=== PATIENT | female | born 1970 | race Caucasian/White ===

== ENCOUNTER 2018-10-25 22:47 | Emergency (ER) | payer OTHER, SELFPAY ==
[2018-10-25 22:48] VITALS: BP 141/79; PULSE 66; RESP 16; TEMP 36.9; O2SAT 100; BMI 31.4
[2018-10-25 23:10] LABS: Absolute Lymphocyte Count 1.51 X10^3/ul (0.83-4.51); Absolute Neutrophil Count 8.7 X10^3/uL (2.0-7.7); Basophil# 0.02 X10^3/uL; Basophil% 0.2 % (0-1); Eosinophil# 0.24 X10^3/uL; Eosinophils% 2.2 % (0-5); Hematocrit 40.1 % (37-47); Hemoglobin 13.4 g/dl (12.0-15.0); Lymphocyte # 1.51 X10^3/ul (4.0); Lymphocyte % 13.7 % (19-41); Mean Corp Hgb Conc 33.4 g/gl (32-36); Mean Corpuscular Hgb 31.1 pg (27.0-32.0); Mean Platelet Vol. 10.2 fl (6.2-12.0); Monocyte# 0.54 X10^3/uL; Monocyte% 4.9 % (0-10); Neutrophil # 8.73 X10^3/uL (2.7-7.7); Neutrophil % 78.9 % (47-70); Platelet Count 236 K/mm3 (150-450); RBC Distribution Width SD 44.4 fl (35.1-43.9); Red Blood Count 4.31 M/mm3 (4.2-5.4); White Blood Count 11.1 K/mm3 (4.4-11.0)
[2018-10-25 23:11] LABS: POSITIVE COUNT NO; POSITIVE DIFFERENTIAL NO; POSITIVE MORPHOLOGY NO
[2018-10-25 23:18] LABS: Bacteria 0 SEEN /hpf (None Seen); Mucous, Urine 0 SEEN /hpf (<or=2+)
[2018-10-25 23:19] LABS: Anion Gap 9 (5-15); BUN 17 mg/dL (7-18); BUN/Creat Ratio 20.9 RATIO (10-20); Calcium,Total 8.9 mg/dL (8.5-10.1); Chloride 104 mmol/L (98-107); Creatinine, Serum 0.81 mg/dL (0.55-1.02); EST Glomerular Filtration Rate 80 mL/min (>60); Est Glom Filt Rate - Afr Amer 97 mL/min (>60); Estimated Creatinine Clearance 71.03 ml/min; Glucose 114 mg/dL (74-106); Potassium 4.1 mmol/L (3.5-5.1); Sodium Level 137 mmol/L (136-145)
--- NOTE | 2018-10-25 23:25 | CT_ITS ---
HISTORY: PT STATED RT SIDE PAIN X SEVERAL HOURS TODAY TECHNIQUE: Helically acquired images were obtained of the abdomen and pelvis without oral or IV contrast as per renal stone protocol. A radiation dose optimization technique was used for this scan. IV Contrast dosage and agent: None. Oral contrast: None. COMPARISON: None FINDINGS: Both kidneys are normal in position. The left kidney shows several 2 mm calyceal stones at the upper and lower pole regions. No additional calculi are seen. No hydronephrosis or hydroureter. Adrenal glands are not enlarged. Lower thorax: No pleural effusion. Limited non-infusion exam. Allowing for this, the liver, spleen, pancreas, gallbladder, and biliary system showed no CT abnormality. Abdominal aorta is atherosclerotic and is normal in caliber. No ascites or retroperitoneal lymphadenopathy. GI tract: Constipation pattern. Diverticulosis coli. No pericecal or pericolonic inflammatory changes. Appendix: The appendix is mildly dilated measuring 10 mm in diameter and shows a solitary 4 mm stone. No associated kenia-appendiceal inflammatory changes are seen. Pelvis: The uterus is not visualized. No free fluid or lymphadenopathy. Urinary bladder is poorly distended. No urinary bladder stones are seen. Bones: No acute osseous abnormality. CT/Abdomen/Pelvis without Cont IMPRESSION: 1. Left renal small nonobstructing stones. Negative for hydronephrosis. 2. Mildly dilated appendix with small appendicolith but no CT findings of acute appendicitis. 3. Constipation pattern. Diverticulosis coli. Individualized dose optimization techniques were used for this CT. at 0020 Reported and signed by: Nathan Sow MD N.B. : The above information has been verbally conveyed by Nathan Sow to Humberto Will MD, on 10/26/2018 00:29:38 (ET). Electronically Signed: Nathan Sow, at 0:19 EST Tel , Service support ,
[2018-10-25 23:33] LABS: Color, Urine Yellow (Yellow); Glucose, Dipstick Normal (Normal); Ketone-Dipstick 5 mg/dl (Negative); Leukocyte Esterase-Dipstick 25 /ul (Negative); Nitrite-Dipstick Negative (Negative); Occult Blood-Urine 50 /ul (Negative); Protein-Dipstick 15 mg/dl (Negative); Specific Gravity, Urine 1.025 (1.002-1.030); Urine Bilirubin Dipstick Negative (Negative); Urine Clarity Clear (Clear); Urine Urobilinogen Normal (Normal)
[2018-10-25] MEDS: Ondansetron 4 MG/2 ML Vial IV (23:33)
[2018-10-25] MEDS: Morphine 4 MG/ML Syringe IV (23:33)
[2018-10-25 23:47] LABS: AST(SGOT) 16 U/L (15-37); Alanine Aminotransfer ALT/SGPT 32 U/L (13-56); Albumin, Serum 4.2 g/dL (3.2-5.0); Alkaline Phosphatase 81 U/L (45-117); Bilirubin, Direct 0.15 mg/dL (0.00-0.30); Globulin 3.6 g/dL (2.2-4.2); Protein, Total 7.8 g/dL (6.4-8.2)
[2018-10-25 23:58] LABS: Pregnancy, Serum, hCG Quali. NEGATIVE Negative (0-9 Nonpreg)
[2018-10-26 00:01] LABS: Amorphous Sediment 1+ URATE; Red Blood Cells-Urine 0-5 SEEN /hpf (0-5); Squamous Epithelial Cells - UA 0-5 SEEN /hpf (5-10); White Blood Cells 0-5 SEEN /hpf (0-5)
[2018-10-26 00:05] LABS: Lipase 90 U/L (73-393)
[2018-10-26] MEDS: Ketorolac 30 MG/ML Syringe IV (00:05)
--- NOTE | 2018-10-26 00:07 | ED.DCSUM_ITS ---
- ER Visit Summary Date of Service: 10/26/18 Chief Complaint: Abdominal pain History of Present Illness: The patient is a 48 F presents to the emergency department abdominal pain. Patient symptoms began yesterday. States he had a mild ache in her right flank area. Today, the pain started again at about 3 PM. He states his been mostly constant but does come in waves of severity. She is been nauseated with one episode of vomiting. She states it feels like it is more in her abdomen. She has a history of prior kidney stone. She has required lithotripsy in the past. She denies any fevers or chills. She denies any dysuria. She denies any recent change in medications. Physical Examination: Vital signs reviewed General: Well-nourished, well-developed Head: Normocephalic, atraumatic Eyes: Pupils equal and reactive, extraocular muscles intact Neck, supple, no lymphadenopathy Heart: Regular rate and rhythm Respiratory: No distress, clear bilaterally Abdomen: Soft, nontender, nondistended, no peritoneal signs Back: Nontender Extremities: Nontender, no edema, no cords Skin: Normal color no rash Neuro: Alert and oriented, no focal or lateralizing deficits Test Results: [] Emergency Department Course and Treatment: The patient presents with abdominal pain mostly in her right flank area. The pain did wax and wane and she did have nausea and vomiting. Her symptoms did seem most consistent with kidney stone. IV was established. Patient was given fluids, analgesics, and antiemetics. She did have improvement, but then return of pain. Her medications were redosed and she was much more comfortable. Screening labs do show mild leukocytosis of 11.1. There is some trace blood in the urinalysis. CT demonstrates some small stones in the kidney, but nothing within the tract. There is some dilation of the appendix, but no evidence of acute appendicitis. Actually reviewed this with the radiologist. I went back and reexamined the patient. She has absolutely no tenderness in the right lower quadrant. She has no rebound or guarding. 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 My suspicion is that the patient likely had a small stone that was not visualized on CT that is causing her pain. She is now pain-free on reevaluation. There is no evidence of hydronephrosis. She has no evidence of infection. I do feel that she is safe for outpatient therapy. I did senior counsel her that if her symptoms worsen or return in any way she should return to the emergency department. She is comfortable with this plan of care. Treatment Plan: [] Disposition: [] Impression: 1. Right flank pain suspect urolithiasis This note was generated with [employer] dictation software. It may contain incorrect words, spelling, and punctuation that were not noted in review of the chart prior to signing ED Disposition - Plan for ED Patient: Chief Complaint: Abd Pain Instructions: ED Flank Pain Uncertain Cause Prescriptions: Hydrocodone Bitart/Apap 5-325 [[place] 5MG-325MG] 1 tab PO Q6H PRN PRN 3 Days #8 tab PRN Reason: Pain Ondansetron [Zofran Odt] 4 mg PO Q8H PRN PRN #10 tab PRN Reason: Nausea Referrals: Jose Manuel Zamorano MD [Primary Care Provider] -
[2018-10-26] MEDS: Morphine 4 MG/ML Syringe IV (01:00)
[2018-10-26 01:02] VITALS: BP 126/82; PULSE 70; RESP 18; TEMP 37.1; O2SAT 97
--- NOTE | 2018-10-26 01:22 | EKG12_ITS ---
Test Reason : Blood Pressure : / mmHG Vent. Rate : 071 BPM Atrial Rate : 071 BPM P-R Int : 154 ms QRS Dur : 076 ms QT Int : 390 ms P-R-T Axes : 008 007 010 degrees QTc Int : 423 ms Normal sinus rhythm Low voltage QRS Borderline ECG Confirmed by PAN HARRIS, SABRINA ([id number]), news video editor VITA GOLD ([id number]) on 10/27/2018 3:28:10 PM Referred By: NILSON Confirmed By:SABRINA PERLA MD
[2018-10-26 01:25] VITALS: BP 117/78; PULSE 72; RESP 16; O2SAT 95
[2018-10-26] MEDS: HYDROcodone Bitartrate/Apap 5/325 Tablet PO (01:33)
[2018-10-26] MEDS: Ondansetron ODT 4 MG Tablet PO (01:34)
== END 2018-10-26 01:36 | disposition home or self-care (01) ==
PROVIDERS: Emergency Provider Emergency Medicine; Family Provider Family Medicine; PCP Family Medicine
DX: R10.9 Unspecified abdominal pain (principal); R11.2 Nausea with vomiting, unspecified; Z87.442 Personal history of urinary calculi
CPT/HCPCS: 74176; 80048; 80076; 81001; 83690; 84703; 85025; 93005; 96374; 96375; 96376; 99284; A4216; J2405

== ENCOUNTER → 2019-01-28 15:10 | Outpatient (CLI) | payer OTHER, SELFPAY ==
[2019-01-28 11:02] VITALS: BMI 31.4
== END ==
PROVIDERS: Family Provider Family Medicine; PCP Family Medicine; Referring Provider Physician Assistant Surgical; Visit Provider Physician Assistant Surgical
DX: J02.9 Acute pharyngitis, unspecified (principal)
CPT/HCPCS: 87081

== ENCOUNTER → 2019-03-31 08:26 | Outpatient (CLI) | payer OTHER, SELFPAY ==
[2019-03-31 08:19] VITALS: BMI 31.4
--- NOTE | 2019-03-31 08:28 | RAD_ITS ---
HISTORY:LEFT KNEE PAIN X 5 WEEKS, GETTING WORSE LEFT KNEE PAIN X 5 WEEKS, GETTING WORSE COMPARISON: None FINDINGS: # of images incl. paperwork: 4 XR Knee Complete 4 Views or More: Left BONE AND JOINTS: No acute fracture or subluxation. SOFT TISSUES: Unremarkable. No radiopaque foreign body. RAD/Knee 4 or More Views IMPRESSION: No acute pathology If symptoms persist consider mri for further evaluation if clinically indicated. at 1942 Reported and signed by: Marylu Jones DO Electronically Signed: Marylu Jones DO at 19:40 EDT Tel , Service support ,
== END ==
PROVIDERS: Family Provider Family Medicine; PCP Family Medicine; Referring Provider Physician Assistant; Visit Provider Physician Assistant
DX: M25.562 Pain in left knee (principal)
CPT/HCPCS: 73564

== ENCOUNTER 2019-04-01 14:05 | Outpatient (RCR) | payer OTHER, SELFPAY ==
[2019-03-31 08:19] VITALS: BMI 31.4
== END 2019-04-01 19:00 | disposition home or self-care (01) ==
LOC: PT 14:05
PROVIDERS: Family Provider Family Medicine; PCP Family Medicine; Referring Provider Physician Assistant; Visit Provider Physician Assistant
DX: M76.32 Iliotibial band syndrome, left leg (principal); M22.2X2 Patellofemoral disorders, left knee

== ENCOUNTER → 2019-04-15 09:20 | Outpatient (CLI) | payer OTHER, SELFPAY ==
[2019-04-15 09:17] VITALS: BMI 31.4
--- NOTE | 2019-04-15 09:23 | RAD_ITS ---
STUDY: X-RAY - LEFT KNEE REASON FOR EXAM: Female, 49 years old. [place] a pop with pain. TECHNIQUE: 4 view(s) of the knee. COMPARISON: None. FINDINGS: Normal visualized distal femur. Normal visualized proximal tibia and fibula. Normal proximal tibiofibular articulation. Normal medial femorotibial compartment. Normal lateral femorotibial compartment. Normal patellofemoral articulation. The soft tissue structures are unremarkable. RAD/Knee 4 or More Views IMPRESSION: Normal x-ray examination of the knee. Electronically Signed: Seun Roche MD at 17:15 EDT , Service support ,
== END ==
PROVIDERS: Family Provider Family Medicine; PCP Family Medicine; Referring Provider Orthopaedic Surgery; Visit Provider Orthopaedic Surgery
DX: S89.92XA Unspecified injury of left lower leg, initial encounter (principal); X58.XXXA Exposure to other specified factors, initial encounter; Y93.9 Activity, unspecified; Y92.9 Unspecified place or not applicable; Y99.9 Unspecified external cause status
CPT/HCPCS: 73564

== ENCOUNTER → 2019-04-16 07:47 | Outpatient (CLI) | payer OTHER, SELFPAY ==
[2019-04-15 09:17] VITALS: BMI 31.4
[2019-04-16 08:32] LABS: Absolute Lymphocyte Count 1.57 X10^3/ul (0.83-4.51); Absolute Neutrophil Count 4.4 X10^3/uL (2.0-7.7); Basophil# 0.02 X10^3/uL; Basophil% 0.3 % (0-1); Eosinophil# 0.29 X10^3/uL; Eosinophils% 4.4 % (0-5); Hematocrit 37.7 % (37-47); Hemoglobin 12.6 g/dl (12.0-15.0); Lymphocyte # 1.57 X10^3/ul (4.0); Mean Corp Hgb Conc 33.4 g/gl (32-36); Mean Corpuscular Hgb 31.4 pg (27.0-32.0); Mean Platelet Vol. 9.7 fl (6.2-12.0); Monocyte# 0.22 X10^3/uL; Monocyte% 3.4 % (0-10); Neutrophil # 4.44 X10^3/uL (2.7-7.7); Neutrophil % 67.7 % (47-70); POSITIVE COUNT NO; POSITIVE DIFFERENTIAL NO; POSITIVE MORPHOLOGY NO; Platelet Count 254 K/mm3 (150-450); RBC Distribution Width CV 13.8 % (11.6-14.6); RBC Distribution Width SD 47.6 fl (35.1-43.9); Red Blood Count 4.01 M/mm3 (4.2-5.4); White Blood Count 6.6 K/mm3 (4.4-11.0)
[2019-04-16 08:53] LABS: ALB/GLOB Ratio 1.2 RATIO (0.9-2.4); AST(SGOT) 15 U/L (15-37); Alanine Aminotransfer ALT/SGPT 22 U/L (13-56); Albumin, Serum 3.9 g/dL (3.2-5.0); Alkaline Phosphatase 72 U/L (45-117); Anion Gap 5 (5-15); BUN 14 mg/dL (7-18); BUN/Creat Ratio 19.6 RATIO (10-20); Calcium,Total 8.9 mg/dL (8.5-10.1); Chloride 108 mmol/L (98-107); Cholesterol 144 mg/dL (200); Creatinine, Serum 0.71 mg/dL (0.55-1.02); EST Glomerular Filtration Rate 93 mL/min (>60); Est Glom Filt Rate - Afr Amer 112 mL/min (>60); Globulin 3.2 g/dL (2.2-4.2); Glucose 86 mg/dL (74-106); High Density Lipoprotein 60 mg/dL; Potassium 3.8 mmol/L (3.5-5.1); Protein, Total 7.1 g/dL (6.4-8.2); Sodium Level 140 mmol/L (136-145); Triglycerides 70 mg/dL; Very Low Density Lipoprotein 14 mg/dL (5-40)
== END ==
PROVIDERS: Family Provider Family Medicine; PCP Family Medicine; Referring Provider Family Medicine; Visit Provider Family Medicine
DX: Z00.00 Encounter for general adult medical examination without abnormal findings (principal)
CPT/HCPCS: 36415; 80053; 80061; 85025

== ENCOUNTER → 2019-04-22 12:30 | Outpatient (CLI) | payer OTHER, SELFPAY ==
[2019-04-15 09:17] VITALS: BMI 31.4
[2019-04-20 15:08] VITALS: BMI 31.4
--- NOTE | 2019-04-22 12:33 | MRI_ITS ---
STUDY: MRI LEFT KNEE REASON FOR EXAM: Female, 49 years old. Left knee pain after injury with popping sensation on April 11, 2019. TECHNIQUE: Standardized fat and water weighted pulse sequences were obtained in all 3 orthogonal planes. COMPARISON: X-rays of the left knee dated April 15, 2019. FINDINGS: Normal medial meniscus. Moderate thinning of the articular cartilage of the medial femorotibial compartment with subchondral cyst formation in the inner aspect of the medial tibial plateau (coronal series 6 images 9-17). Mild MCL sprain (coronal series 6 image 14). Normal distal semimembranosus, gracilis and semitendinosus tendons. Normal lateral meniscus. Mild thinning of the articular cartilage of the lateral femorotibial compartment (coronal series 6 images 10-16). Normal lateral femoral condyle and tibial plateau. Normal proximal tibiofibular articulation. Normal lateral collateral (fibular) ligament. Normal popliteus tendon. Normal biceps femoris tendon. Normal anterior cruciate ligament (ACL). Normal posterior cruciate ligament (PCL). 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 Normal medial and lateral patellar retinaculum. Normal quadriceps tendon. Normal patellar tendon. Normal Hoffa's fat pad. Joint effusion (axial series 2 image 11). Prepatellar subcutaneous soft tissue edema (sagittal series 4 image 13). The otherwise visualized osseous structures are unremarkable. MRI/Lower Ext Joint Only (Routine) IMPRESSION: Moderate thinning of the articular cartilage of the medial femorotibial compartment with subchondral cyst formation in the inner aspect of the medial tibial plateau. Mild MCL sprain. Mild thinning of the articular cartilage of the lateral femorotibial compartment. 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 Prepatellar subcutaneous soft tissue edema. Joint effusion. Electronically Signed: Seun Roche MD at 15:09 EDT , Service support ,
== END ==
PROVIDERS: Family Provider Family Medicine; PCP Family Medicine; Referring Provider Orthopaedic Surgery; Visit Provider Orthopaedic Surgery
DX: S83.242A Other tear of medial meniscus, current injury, left knee, initial encounter (principal)
CPT/HCPCS: 73721

== ENCOUNTER → 2019-04-29 13:36 | Outpatient (CLI) | payer OTHER, SELFPAY ==
[2019-04-15 09:17] VITALS: BMI 31.4
[2019-04-20 15:08] VITALS: BMI 31.4
--- NOTE | 2019-04-29 13:39 | BI_ITS ---
MAMMOGRAPHY - BILATERAL SCREENING REASON FOR EXAM: Female, 49 years old. Routine annual screening examination. PERTINENT HISTORY: Non-contributory. Prior left stereotactic breast biopsy. TECHNIQUE: Digital bilateral breast alissa (3D mammographic acquisition) in the CC and MLO projections. 2-D mediolateral oblique (MLO) and craniocaudad (CC) views of both breasts were obtained. CAD: Full Field Digital Mammography with Computer Added Detection was performed. COMPARISON: No comparison mammograms available at this time. If any prior films become available, an addendum to this report can be generated. FINDINGS: Breast Composition: The breasts are heterogeneously dense, which may obscure small masses. There are no dominant masses or suspicious calcifications. A tissue clip marker is seen in the deep central medial aspect of the left breast. No other significant abnormalities are identified. BI/SCREEN MAMM (CAD) W/ALISSA BILAT IMPRESSION: Negative screening mammogram. Yearly followup mammogram recommended. (A) ASSESSMENT CATEGORY: BIRADS Category 2: Benign. A letter regarding these results will be sent to the patient by the facility within 30 days. Approximately 10% of breast cancers are not detected by mammography. A normal mammogram should not delay biopsy of a clinically suspicious abnormality. [id number] Electronically Signed: Reymundo Perez, at 15:35 EDT , Service support ,
== END ==
PROVIDERS: Family Provider Family Medicine; PCP Family Medicine; Referring Provider Family Medicine; Visit Provider Family Medicine
DX: Z12.31 Encounter for screening mammogram for malignant neoplasm of breast (principal)
CPT/HCPCS: 77063; 77067

== ENCOUNTER 2019-05-13 07:43 | Day surgery (SDC) | payer OTHER, SELFPAY ==
[2019-05-06 09:55] VITALS: BMI 31.4
--- NOTE | 2019-05-06 10:09 | HP_ITS ---
I have re-examined the patient. There are no clinical changes since date of exam. Intake Vital Signs 05/06/19 Body Mass Index (BMI) 31.4 Intake Visit Reasons: LEFT KNEE Allergies No Known Allergies Allergy (Verified 01/28/19 10:35) [facility] Medical History (Updated 01/28/19 @ 11:29 by ECHO Ruiz) Back pain (Acute) Chest pain (Acute) History of kidney stones (Acute) Knee pain (Acute) Severe headache (Acute) Surgical History (Updated 01/28/19 @ 10:37 by Naty Blum) History of hysterectomy (Acute) History of tonsillectomy and adenoidectomy (Acute) Social History alcohol intake: current Alcohol type: beer details: occasional HPI LEFT KNEE: Surgical H&P: Yes Details: Parts of this documentation were recorded by a scribe, this documentation accurately reflects the service provided and the decisions made by me, Shawnee Farmer, DO 05/06/19 2830. LATONIA COLLADO is a 49 year old F here today for MRI f/u of the left knee. She is ambulating better today but continues to have pain with full extension. Denies numbness, tingling or other associated symptoms. Ortho Exam Left Knee Contralateral Normal: Yes Homans Sign: No Knee ROM: No ROM-Extension -20 to 0, No ROM-Flexion 0-140 Examination: Yes med jt line tenderness, Yes Pain with flexion Stability: NML: Anterior Drawer, NML: Posterior Drawer Assessment & Plan Problems 1. Acute medial meniscus tear of left knee, subsequent encounter S83.274D Plan Personally reviewed the MRI and explained that she has medial meniscus signs on exam and when viewing the images but the report is negative there is also a cyst noted Her treatment options are do nothing, steroid injection or knee arthroscopy for debridement vs repair. Reviewed the post op restrictions based on the surgery. Reviewed the pre-operative plans with the patient. Risks and benefits of the procedure were fully explained, including but not limited to infection, neurovascular injury, continued pain, arthritis, stiffness, need for further surgery, re-injury, DVT, PE, general risks of anesthesia, and loss of limb or life. The patient understands all the risks and does wish to proceed with written consent. Follow up post op or sooner if pain, swelling, numbness or associated symptoms, or concerns develop. All questions answered. Patient in agreement of plan. Coding Diagnoses Acute medial meniscus tear of left knee, subsequent encounter S8.242D ??Encounter type: subsequent encounter Date _ Shawnee Farmer DO
[2019-05-13] VITALS (8 sets, daily range): BP systolic 101–142; BP diastolic 54–87; PULSE 60–83; RESP 16–18; TEMP 36.1–37.2; O2SAT 96–100; BMI 27.9
--- NOTE | 2019-05-13 09:07 | DCINST_ITS ---
Discharge Diet: No Restrictions - ttwb left leg with knee locked in extension, locked in extenstion at night, come in to office in 4 days for dressing/change/ brace change, Discharge Activity: May Not Drive May shower in (days): 1 Ice area for (Minutes): 20 - Every hour while awake. Weight Bearing Status: Weight bearing as tolerated Keep extremity elevated above heart level: Operative Extremity Call your doctor if your incision/area has: Continuous Slow Oozing, Sudden Increased Bleeding, Increased Pain/ Swelling, Increased Redness, Foul Smelling Discharge Call your doctor if you observe: Fever of 101 or Higher, Coldness, Increased Pain, Numbness or Tingling, Change in Color, Calf discomfort Allergies/Adverse Reactions: Allergies No Known Allergies Allergy (Verified 05/11/19 08:28) Medications to take at Discharge acetaminophen 325 mg capsule 325 mg PO Q6H PRN 01/28/19 ibuprofen 100 mg tablet 200 mg PO TID-QID PRN 01/28/19 Ranitidine HCl [Zantac] 150 mg PO PRN PRN 05/11/19 Oxycodone HCl/Acetaminophen [Percocet 5/325] 1 - 2 tab PO Q6H PRN PRN 5 Days #28 tab 05/13/19 The following prescriptions were given: Oxycodone HCl/Acetaminophen [Percocet 5/325] 1 - 2 tab PO Q6H PRN PRN 5 Days #28 tab PRN Reason: Pain Transmission Status: Received by [facility] Primary Care Physician: Jose Manuel Zamorano MD [Primary Care Provider] - Test Results: Test results from this visit will be discussed in further detail at your follow- up appointment, if applicable. Please Follow Up With: Shawnee Farmer, - [phone]
--- NOTE | 2019-05-13 09:09 | OP.PCM_ITS ---
Report of Operation Date of Procedure: 05/13/19 Pre-Operative Diagnosis: left knee medial meniscus tear, oa Post-Operative Diagnosis: same Surgery/Procedure Performed:: reilly null men repair, extensive synovectomy Type of Anesthesia:: General Anesthesiologist: Guillermo Moreira Estimated Blood Loss (mL): minimal Fluids Replaced: see anesthesia chart Description of Procedure: preop note Patient is a 49-year-old female who sustained a knee injury while on vacation. Patient felt a pop instability and inability to weight-bear. Patient was felt followed conservatively with injections failed these an MRI confirmed some arthritis as well as a medial meniscus tear. Risks benefits and alternatives surgery discussed with patient. Risks including but not limited to blood loss, blood clot, infection, neurovascular drainage, failure procedure, loss of life and loss of limb. Patient is aware of like proceed with left knee arthroscopy repair as indicated Operative note patient seen and examined in preiop holding area left knee marked. Patient was brought to the operating placed supine on the operating table. Signed, anesthesia, antibiotics were online marketing coordinator. The left knee was prepped and draped in usual sterile fashion with a tourniquet around her upper thigh. Sign, anesthesia, antibiotics were administered. All bony problems well-padded SCDs placed on her contralateral limb. A timeout was marked utterance tear lateral anterior medial portal placement. Left leg was elevated same topstitcher lockstitch rates her pressure 250 torr. A timeout was performed. Then created an anterior lateral portal. Begin a diagnostic arthroscopy. The patellofemoral joint was unremarkable there is some fibrillated changes on the inferior pole. We moved to the medial joint line. There is extensive synovitis along the anterior medial anterior lateral portal joint extending had not making it difficult to get into her anteromedial joint line. We created an anteromedial portal under direct visualization. And then resected back to the extensive synovitis with with a shaver. We then able to visualize her medial meniscus. Was unstable posterior horn medial meniscus tear. We then used a rasp to rasp the tear and then placed 360 FasT-Fix 3 suture devices across the tear. We then reinserted the probe and noted that we had good stability of the para. ACL and PCL were present within the notch. There is some grade 3 changes of the medial femoral condyle with a kissing lesion on the medial tibial plateau. There were no unstable pieces of the medial femoral condyle medial femoral condyle. We did resect back again the extensive synovitis in the anteromedial and anterolateral recesses. We did trim back a little bit there is a cyst on the anterior lateral aspect of the illness like a loose body on the anterolateral aspect of the lateral meniscus which was debrided back with a shaver. We then also debrided back to the inferior pole of the patella to a stable rim. The lateral meniscus was intact and stable probing. There was some grade 2 fibrillated fibrillated changes on the lateral femoral condyle as well as the lateral tibial plateau. There were no loose bodies in the medial or lateral gutters. The knee was then irrigated with copious muscle sterile saline. Tourniquet was deflated and portals were closed with interrupted 4-0 nylon sutures. Sterile dressings were applied and a hinged brace was applied. Patient tolerated procedure well no comp occasions transferred to recovery room in stable condition next Postoperative note Toe-touch weightbearing left leg locked brace in extension during ambulation and at night Call with increased pain numbness tingling or other issues arises Hospital pharmacy has prescriptions We will give family pictures at postop visit Dragon disclaimer This note was generated with [employer] dictation software. It may contain incorrect words, spelling, and punctuation that were not noted in checking the note before signing.
[2019-05-13] MEDS: Cefazolin 2 GM in 0.9% Normal Saline 100 ML IV (09:41)
[2019-05-13] MEDS: Epinephrine (1 mg/ml) 1 MG/ML VIAL (10:11)
[2019-05-13] MEDS: Bupiv/Epi 0.25% 30 ML Vial (10:28)
[2019-05-13] MEDS: Mupirocin Ointment 22gm Tube 1 APPLIC (10:29)
== END 2019-05-13 12:18 | disposition home or self-care (01) ==
LOC: SDC 07:43 → AC 07:44
PROVIDERS: Family Provider Family Medicine; PCP Family Medicine; Referring Provider Orthopaedic Surgery; Visit Provider Orthopaedic Surgery
PROC: (CPT 29870; principal; 2019-05-13 09:00)
DX: S83.242A Other tear of medial meniscus, current injury, left knee, initial encounter (principal); M17.12 Unilateral primary osteoarthritis, left knee; X58.XXXA Exposure to other specified factors, initial encounter; Y93.9 Activity, unspecified; Y92.9 Unspecified place or not applicable; Y99.9 Unspecified external cause status; Z79.899 Other long term (current) drug therapy; Z87.442 Personal history of urinary calculi
CPT/HCPCS: 29882; 64447; J7120; J2405

== ENCOUNTER 2019-07-22 09:00 | Outpatient (RCR) | payer OTHER, SELFPAY ==
[2019-05-26 08:11] VITALS: BMI 27.9
--- NOTE | 2019-06-03 10:31 | HP.PTEVAL_ITS ---
Patient's Visit Information LATONIA COLLADO is a 49 year old F referred to Physical Therapy by Shawnee Farmer DO with a diagnosis of R meniscal repair, synovectomy. Date of Evaluation: 06/01/19 Physical Therapist: Augie Call DPT - Visit Plan Frequency: 2-3x /Week Duration: 6-8 weeks Plan: Start withisometric strengthening, ROM, edema control. Progress per protocol. - Subjective Findings: Pt. is here today for her initial evaluation with diagnosis of L meniscal repair. DOS: 05/13/19. Pt. arrives today with TROM brace on with crutches. She is NWBing for 6 weeks in brace, but is allowed to remove for PT. Pt. reports not having much pain now in her knee. Pt. reports having slight difficulty attempting to sleep, but this is due to brace. Pt. works as a nurse at the hospital in recovery. Pt. has not been doing any exercises at home. Pt. denies N/T. Pt. reports doing well. Pt. is hopeful to regain ROM and strength in order to get back to all recreational and work activities without limitations. - Pain L knee Pain Intensity (Out of 10): 0 Pain Intensity Range: 0, 3 - Objective POSTURE: Pt. has normal posture in stance. Pt. is NWBing and compliant on LLE. PALAPTION: Pt. has markded edema in LLE throughout knee. No signs of infection, normal healing incisons. NEURO: normal throughout. ROM: 0-5-60deg- no forcefull testing of ROM. Tight HS and tight Hip flexor/quad. Normal hip ROM bilaterally. MMT: pt. is able to complete a quad set on her LLE, but has ~20deg lag with SLR, pt. ahs 4/5 hip abd and hip ext. did not trial HS this date. GAIT: Pt. is able to ambulate with normal gait pattern with use of crutches, NWBing on LLE. - Goals Goal 1:: Pt. to be I with HEP. Goal Time Frame: 4-6 Weeks Goal 2:: Pt. to have increased L knee ROM to full wthout incerase insymptoms. Goal Time Frame: 6-8 Weeks Goal 3:: Pt. to have SLR without extensor lag. Goal Time Frame: 4-6 Weeks Goal 4:: Pt. to sleep throughout the night wihtout increase insymptoms. Goal Time Frame: 4-6 Weeks Goal 5:: Pt. to have normal gait pattern without increase insymptoms. Goal Time Frame: 4-6 Weeks - Rehabilitation Potential Physical Therapy Diagnosis: Pt. has signs and symptoms consistent with L meniscal repair and synovectomy. pt .has subsequent hypombility, weakness, and difficulty walking. Rehabilitation Potential: Excellent - Anticipated Interventions Patient/Client Instruction: Educate patient on: Condition, Plan of Care, Risk Factors, Benefits of Fitness Program For the Purpose of:: To improve decision making, To facilitate caregiver knowledge, To improve self management, To prevent re-injury, To improve ability to perform tasks related to life management Therapeutic Exercise to Include: Strength training, Power training, Balance training, Body mechanics, Postural training, Gait and locomotor training, Passive ROM, Active ROM For the Purpose of:: To decrease pain, To increase ROM, To improve nutrient delivery to tissue, To increase oxygenation perfusion, To improve performance and independence with ADL's, To decrease level of supervision to perform tasks, To improve ability of physical actions for home/community/work/leisure, To improve gait and locomotor functions, To improve health of tissue, To decrease soft tissue restriction, To increase flexibility/ROM, To improve balance Manual Therapy Techniques to Include: Mobilization, Soft tissue mobilization For the Purpose of:: To decrease pain, To decrease swelling/inflammation, To increase ROM IF ES: Yes Cryotherapy (ice pack, ice massage): Yes Vasopneumatic device: Yes For the Purpose of:: To decrease pain, To decrease swelling/inflammation, To increase ROM Thank you for the opportunity to evaluate your patient. For Medicare and Medicare HMO plans, please review the plan of care and approve it. It will need to be FAXED BACK to us at [phone] for Medicare purposes. For Medicare only, by signing this I certify the plan of care. Please let me know if there are questions or concerns regarding this plan of care. Physician Signature: ___Date:
--- NOTE | 2019-06-27 10:42 | HP.PTREVAL ---
Shawnee Farmer, DO, It has been my pleasure to treat LATONIA COLLADO over the last 9 visits for R meniscal repair, synovectomy. Please see the progress note below for an update on the physical therapy plan of care! Subjective: Pt. reports I am getting better, but the last few days without my crutches it has been sore. Pt. is supposed to return to work next week. Pt. reports being HEP compliant. Objective/Function: Pt. tolerated all PT without adverse reaction. Pt. contunes to progress. 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 She has progressed since removing her crutches. ROM: 0-0-108deg AROM, PROM 0-0-111deg. MMT: ankle 5/5t throuhgout; knee- ext 4+/5, flexion 4+/5; hip- flexion 4/5, abd 4/5, ext 4+/5. GAIT: Pt. ambulates with sligth knee flexion, but improved with increased gait trials. Pt. reports having slight popping in her knee at home, but was unable to reporduce this date. I would recommend that she continue to further increase strength and further ROM. Plan Plan: requesting further visits to work on strengthening and stability with purpose on increasing tolerance to all functional and work activitie. Goals Goal 1:: Pt. to be I with HEP. Goal Time Frame: 4-6 Weeks Goal 2:: Pt. to have increased L knee ROM to full wthout incerase insymptoms. Goal Time Frame: 6-8 Weeks Goal 3:: Pt. to have SLR without extensor lag. Goal Time Frame: 4-6 Weeks Goal 4:: Pt. to sleep throughout the night wihtout increase insymptoms. Goal Time Frame: 4-6 Weeks Goal 5:: Pt. to have normal gait pattern without increase insymptoms. Goal Time Frame: 4-6 Weeks Anticipated Interventions Patient/Client Instruction: Educate patient on: Condition, Plan of Care, Risk Factors, Benefits of Fitness Program For the Purpose of:: To improve decision making, To facilitate caregiver knowledge, To improve self management, To prevent re-injury, To improve ability to perform tasks related to life management Therapeutic Exercise to Include: Strength training, Power training, Balance training, Body mechanics, Postural training, Gait and locomotor training, Passive ROM, Active ROM For the Purpose of:: To decrease pain, To increase ROM, To improve nutrient delivery to tissue, To increase oxygenation perfusion, To improve performance and independence with ADL's, To decrease level of supervision to perform tasks, To improve ability of physical actions for home/community/work/leisure, To improve gait and locomotor functions, To improve health of tissue, To decrease soft tissue restriction, To increase flexibility/ROM, To improve balance Manual Therapy Techniques to Include: Mobilization, Soft tissue mobilization For the Purpose of:: To decrease pain, To decrease swelling/inflammation, To increase ROM IF ES: Yes Cryotherapy (ice pack, ice massage): Yes Vasopneumatic device: Yes For the Purpose of:: To decrease pain, To decrease swelling/inflammation, To increase ROM Please do not hesitate to contact me at [phone] by phone or if you have questions or concerns regarding this new plan of care! Sincerely, Augie Call DPT
--- NOTE | 2019-11-22 09:59 | HP.PT.NRP ---
HP - Discharge Summary (1) - Patient Information LATONIA COLLADO was seen in my office for initial evaluation on 06/01/19. The following Plan of Care was established for this patient: Initial Frequency: 2-3x /Week Initial Duration: 6-8 weeks - Anticipated Interventions Patient/Client Instruction: Educate patient on: Condition, Plan of Care, Risk Factors, Benefits of Fitness Program For the Purpose of:: To improve decision making, To facilitate caregiver knowledge, To improve self management, To prevent re-injury, To improve ability to perform tasks related to life management Therapeutic Exercise to Include: Strength training, Power training, Balance training, Body mechanics, Postural training, Gait and locomotor training, Passive ROM, Active ROM For the Purpose of:: To decrease pain, To increase ROM, To improve nutrient delivery to tissue, To increase oxygenation perfusion, To improve performance and independence with ADL's, To decrease level of supervision to perform tasks, To improve ability of physical actions for home/community/work/leisure, To improve gait and locomotor functions, To improve health of tissue, To decrease soft tissue restriction, To increase flexibility/ROM, To improve balance Manual Therapy Techniques to Include: Mobilization, Soft tissue mobilization For the Purpose of:: To decrease pain, To decrease swelling/inflammation, To increase ROM IF ES: Yes Cryotherapy (ice pack, ice massage): Yes Vasopneumatic device: Yes For the Purpose of:: To decrease pain, To decrease swelling/inflammation, To increase ROM This patient was last seen in our office 07/22/19. Pertinent comments regarding their Physical therapy will appear below: Pt. was seen in PT after her knee surgery. Pt. was doing well and went on vacation after her last visit. Pt. has not been seen in PT since. Pt. will be DC from PT at this point in time. At this point I will be discontinuing this patient from physical therapy. I would be happy to see this patient again in the future if found appropriate by the physician. Thank you! TAD MontielT
== END 2019-07-22 17:00 | disposition home or self-care (01) ==
LOC: PT 09:00
PROVIDERS: Family Provider Family Medicine; PCP Family Medicine; Referring Provider Orthopaedic Surgery; Visit Provider Orthopaedic Surgery
DX: Z98.890 Other specified postprocedural states (principal)
CPT/HCPCS: 97110; 97161; 97530

== ENCOUNTER 2020-12-13 13:35 | Emergency (ER) | payer OTHER, SELFPAY ==
[2019-08-11 08:12] VITALS: BMI 27.9
[2020-12-13 13:36] VITALS: BP 136/92; PULSE 93; RESP 17; TEMP 36.7; O2SAT 98; BMI 24.5
--- NOTE | 2020-12-13 13:57 | EKG12_ITS ---
Test Reason : CP Blood Pressure : / mmHG Vent. Rate : 088 BPM Atrial Rate : 088 BPM P-R Int : 140 ms QRS Dur : 082 ms QT Int : 344 ms P-R-T Axes : 071 019 057 degrees QTc Int : 416 ms Normal sinus rhythm Normal ECG Confirmed by BATSHEVA HARRIS, IVNCENT ([id number]), offline editor DEBRA DOUGHERTY ([id number]) on 12/17/2020 9:53:43 AM Referred By: FRITZ/SUNIL Confirmed By:DONI HERMAN MD
[2020-12-13 13:59] VITALS: O2SAT 98
--- NOTE | 2020-12-13 13:59 | ED.DCSUM_ITS ---
History of Present Illness Chief Complaint: Chest Pain Informant: Patient Onset: Yesterday Activity at onset: Rest Timing: Intermittent, Lasts - Couple hours Quality: Aching Location: Substernal - Without radiation Current Severity: Gone Maximum Severity: Moderate Worsened By: Nothing Relieved By: Nothing Associated Symptoms: Lightheadedness - Without syncope, Palpitations - Racing heartbeat. 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 She was at work here today when it happened, so she put herself on telemetry and saw what looked like sinus tachycardia in the 110-120 range. She denies any history of thromboembolic disease, leg pain or swelling recently, or recent illness. She is a smoker and had a nicotine patch on so she removed it. She denies any other stimulant or drug use. Past Medical History - Allergies and Home Meds Allergies/Adverse Reactions: Allergies No Known Allergies Allergy (Verified 12/13/20 13:47) Primary Care Physician: Jose Manuel Zamorano MD [Primary Care Provider] - Past Medical History: None Smoking Status: Current every day smoker Review of Systems General: Denies: Chills, Fever, Sweats Eyes: Denies: Visual changes - bilaterally, Diplopia ENT: Denies: Rhinorrhea, Sore throat Cardiovascular: Reports: Chest pain, Palpitations, Heart racing Respiratory: Denies: Dyspnea, Cough, Dyspnea on exertion Gastrointestinal: Denies: Abdominal pain, Nausea, Vomiting, Diarrhea, Melena, Hematochezia Genitourinary: Denies: Dysuria, Hematuria, Frequency Musculoskeletal: Denies: Back pain, Extremity Pain Skin: Denies: Rash, Wounds Neurological: Denies: Headache, Weakness, Numbness Physical Exam Vital Signs/Narrative: Vital Signs Temp Pulse Resp BP Pulse Ox 12/13/20 13:36 98.0 F 93 17 136/92 H 98 Inital Vital Signs reviewed: Yes General: Well nourished, Well developed, No Acute Distress Head: Normocephalic, Atraumatic Eyes: Perrl, EOMI ENT: Moist mucous membranes, No rhinorrhea Neck: Supple, Nontender, No lymphadenopathy, No JVD Cardiovascular: Regular rate, Regular rhythm, No murmurs Respiratory: No distress, CTA bilaterally, Chest nontender Abdomen: Soft, Nontender, Nondistended, Normal bowel sounds Back: Nontender, Normal Inspection Extremities: Nontender, No edema. Negative for: Calf Tenderness Skin: Normal color, No rash, No Trauma Neurological: Alert, Oriented x3, Cranial nerves II-XII grossly intact, Normal Strength, Normal Sensation, Normal Gait Psychological: Normal affect, Normal Mood Diagnostic/Tx/Re-eval Impressions Chest X-Ray 12/13/20 14:10 IMPRESSION: Hyperinflation. The lungs are clear. Electronically Signed: Reymundo Perez MD at 14:34 EST , Service support , 12/13/20 14:10 Chest 1 View (Portable) [RAD] Stat Laboratory Results 12/13/20 12/13/20 14:00 14:00 WBC 7.3 RBC 4.24 Hgb 13.5 Hct 40.6 MCV 95.8 MCH 31.8 MCHC 33.3 RDW Std Deviation 44.9 H RDW Coeff of Kristopher 12.7 Plt Count 233 MPV 10.1 Immature Gran % (Auto) 0.300 Neut % (Auto) 68.8 Lymph % (Auto) 23.0 Gregory % (Auto) 4.9 Eos % (Auto) 2.5 Baso % (Auto) 0.5 Absolute Neuts (auto) 5.0 Absolute Lymphs (auto) 1.68 Nucleated RBC % 0 Sodium 138 Potassium 3.5 Chloride 104 Carbon Dioxide 29.0 Anion Gap 5 BUN 10 Creatinine 0.88 Estim Creat Clear Calc 66.78 Est GFR (MDRD) Af Amer 87 Est GFR (MDRD) Non-Af 72 BUN/Creatinine Ratio 11.4 Glucose 105 Calcium 9.2 Troponin I < 0.015 TSH 0.81 - Rhythm Strip Rhythm Strip: Sinus Rhythm Rate: 88 Ectopy: None - EKG Initial EKG Interpretation: Sinus Rhythm, No Acute Injury Pattern - Normal EKG PARTH Risk: No Positive PARTH Elements Score: 0 - Medical Decision Making Patient has a heart score of 3 given her history, age, and risk with smoking. Her work-up is negative and she remained symptom-free while in the emergency department for 1.5 hours. Given her chest discomfort associated with the palpitations which I suspect is paroxysmal atrial tachycardia, I discussed with Dr. Noland with cardiology. He is comfortable with the patient following up as an outpatient and not being admitted for provocative stress testing emergently. Patient is comfortable with that as well. She was encouraged to try to avoid smoking and using nicotine even in patch form. We discussed reasons to return to the hospital she is comfortable with that plan. ED Disposition - Plan for ED Patient: Disposition: Home or Assisted Living Diagnosis: Rapid palpitations, Intermittent chest pain Instructions: ED Palpitations, ED Tachycardia: PAT Referrals: Jose Manuel Zamorano MD [Primary Care Provider] - Tay Francisco MD [STAFF PHYSICIAN] - (Call to make appointment with Drs. Francisco or Alek) Additional Instructions: Try to avoid smoking and nicotine patches if able. Try to avoid caffeine for now as well since it is also a stimulant.
[2020-12-13] MEDS: Aspirin 81 MG TAB.CHEW 324 MG PO (14:08)
[2020-12-13 14:10] VITALS: O2SAT 97
--- NOTE | 2020-12-13 14:10 | RAD_ITS ---
STUDY: X-RAY CHEST REASON FOR EXAM: Female, 50 years old. Chest pain. hx. Tachycardia TECHNIQUE: Single AP portable view of the chest. COMPARISON: Comparison is made with prior study 08/08/2014. FINDINGS: EKG electrodes are seen. Hyperinflation. The lungs are clear. There is no demonstrated pleural abnormality. Normal size heart. Normal mediastinum and neelam. Normal visualized pulmonary arteries. Normal visualized aortic arch and descending thoracic aorta. There are diffuse degenerative changes of the visualized thoracic spine. Normal visualized ribs, clavicles, and shoulders. There is no demonstrated abnormality of the visualized soft tissue structures of the upper abdomen. RAD/Chest 1 View (Portable) IMPRESSION: Hyperinflation. The lungs are clear. Electronically Signed: Reymundo Perez MD at 14:34 EST , Service support ,
[2020-12-13 14:13] LABS: Absolute Lymphocyte Count 1.68 X10^3/uL (0.83-4.51); Basophil# 0.04 X10^3/uL; Basophil% 0.5 % (0-1); Eosinophil# 0.18 X10^3/uL; Eosinophils% 2.5 % (0-5); Hematocrit 40.6 % (37-47); Hemoglobin 13.5 g/dL (12.0-15.0); Lymphocyte # 1.68 X10^3/ul (4.0); Mean Corp Hgb Conc 33.3 g/dL (32-36); Mean Corpuscular Hgb 31.8 pg (27.0-32.0); Mean Corpuscular Volume 95.8 fL (81-99); Mean Platelet Vol. 10.1 fl (6.2-12.0); Monocyte# 0.36 X10^3/uL; Monocyte% 4.9 % (0-10); NRBC Flagged by Analyzer 0 % (0-5); Neutrophil # 5.04 X10^3/uL (2.7-7.7); Neutrophil % 68.8 % (47-70); Platelet Count 233 K/mm3 (150-450); RBC Distribution Width CV 12.7 % (11.6-14.6); RBC Distribution Width SD 44.9 fl (35.1-43.9); Red Blood Count 4.24 M/mm3 (4.2-5.4); White Blood Count 7.3 K/mm3 (4.4-11.0)
[2020-12-13 14:35] VITALS: BP 122/89; PULSE 80; RESP 16; O2SAT 98
[2020-12-13 14:37] LABS: Anion Gap 5 (5-15); BUN 10 mg/dL (7-18); BUN/Creat Ratio 11.4 RATIO (10-20); Calcium,Total 9.2 mg/dL (8.5-10.1); Chloride 104 mmol/L (98-107); Creatinine, Serum 0.88 mg/dL (0.55-1.02); EST Glomerular Filtration Rate 72 mL/min (>60); Est Glom Filt Rate - Afr Amer 87 mL/min (>60); Estimated Creatinine Clearance 66.78 ml/min; Glucose 105 mg/dL (74-106); Potassium 3.5 mmol/L (3.5-5.1); Sodium Level 138 mmol/L (136-145); Thyroid Stim Hormone (TSH) 0.81 uIU/mL (0.358-3.74)
[2020-12-13 15:08] VITALS: BP 111/83; PULSE 78; RESP 13; O2SAT 99
== END 2020-12-13 15:11 | disposition home or self-care (01) ==
PROVIDERS: Emergency Provider Emergency Medicine; PCP Family Medicine
DX: R00.2 Palpitations (principal); R07.89 Other chest pain; R42 Dizziness and giddiness; F17.200 Nicotine dependence, unspecified, uncomplicated
CPT/HCPCS: 71045; 80048; 84443; 84484; 85025; 93005; 99285

== ENCOUNTER → 2021-03-07 07:13 | Outpatient (CLI) | payer OTHER, SELFPAY ==
--- NOTE | 2021-03-07 07:16 | BI_ITS ---
MAMMOGRAPHY - BILATERAL SCREENING 3-D TOMOSYNTHESIS REASON FOR EXAM: Female, 51 years old. Routine screening PERTINENT HISTORY: No significant family history. TECHNIQUE: 2-D mammograms and 3-D Tomosynthesis of the breast (s) were performed. CAD was performed. COMPARISON: 04/29/2019 FINDINGS: The breast composition is heterogeneously dense that can obscure small breast masses. Scattered benign calcifications are seen. No dense spiculated masses or suspicious microcalcifications are identified. No architectural distortion is identified. There is no skin thickening or retraction. There has been no significant change since the prior study. BI/SCRN MAMM (CAD)W/ALISSA BILAT IMPRESSION: No mammographic signs of malignancy. Routine yearly mammograms recommended. ASSESSMENT CATEGORY: BIRADS Category 2: Benign. A letter regarding these results will be sent to the patient by the facility within 30 days. FOLLOW UP RECOMMENDATION: Yearly follow up mammogram recommended. (A) Approximately 10% of breast cancers are not detected by mammography. A normal mammogram should not delay biopsy of a clinically suspicious abnormality. Electronically Signed: Jorge Mcfadden MD at 8:35 EDT , Service support ,
== END ==
PROVIDERS: PCP Family Medicine; Referring Provider Family Medicine; Visit Provider Family Medicine
DX: Z12.31 Encounter for screening mammogram for malignant neoplasm of breast (principal)
CPT/HCPCS: 77063; 77067

== ENCOUNTER 2021-03-21 05:25 | Day surgery (SDC) | payer OTHER, SELFPAY ==
[2021-03-21 05:50] VITALS: BP 118/83; PULSE 79; RESP 14; TEMP 36.6; O2SAT 98; BMI 23.4
[2021-03-21] MEDS: Lactated Ringers 1,000 ML 100 ML IV (06:06)
--- NOTE | 2021-03-21 06:21 | PCM.HP.STD ---
HPI - General HPI Narrative LATONIA COLLADO, is a 51 F who presents for screening colonoscopy. She has no symptoms. She has never had a previous scope exam. She presents via an open access. She otherwise enjoys good health. No abdominal pain. No change in bowel habits. No bright red blood per rectum or melena. Family history is notable for a grandfather had colon cancer. [facility] Medical History (Updated 03/21/21 @ 06:[address] Aaron Turner MD) Alcohol use Back pain Blackout Chest pain Former smoker Heartburn History of kidney stones History of stress test Knee pain Kyphosis Severe headache Home Medications NK 12/13/20 [History Last Taken Unknown] Allergy/AdvReac Type Severity Reaction Status Date / Time No Known Allergies Allergy Verified 03/14/21 10:29 Surgical History (Updated 03/14/21 @ 10:37 by Valarie Crook) History of hysterectomy History of tonsillectomy and adenoidectomy Hx of arthroscopy of left knee Hx of lithotripsy Social History (Updated 08/11/19 @ 09:[address] Shawnee Farmer, ) Smoking Status: Current every day smoker tobacco type: cigarettes alcohol intake: current Alcohol type: beer details: occasional ROS Constitutional Constitutional: Reports systems reviewed and no addt'l complaints, except as documented Cardiovascular Cardiovascular: Reports systems reviewed and no addt'l complaints, except as documented Respiratory/Chest Respiratory/Chest: Reports systems reviewed and no addt'l complaints, except as documented Gastrointestinal Gastrointestinal: Denies change in bowel habits, hematochezia or melena Vital Signs Vital Signs Vital Signs: 03/21/21 05:50 Temperature 97.8 F Temperature Source Temporal Pulse Rate 79 Respiratory Rate 14 Respiratory Pattern Normal Blood Pressure 118/83 H Blood Pressure Mean 94 Blood Pressure Source Monitor Blood Pressure Position Semi-Fowlers Blood Pressure Location Right Arm Pulse Ox 98 Oxygen Delivery Method Room Air Weight Weight: 136 lb 7.458 oz Body Mass Index (BMI) 23.4 Physical Exam Const alert, oriented x3 and no apparent distress General Appearance: cooperative and comfortable HEENT normocephalic Eyes General Eye: normal appearance of both eyes Neck General: normal visual inspection Resp normal respiratory effort and clear to auscultation bilaterally Cardio regular rate and regular rhythm GI normal to inspection, nondistended, normoactive bowel sounds, soft to palpation, non-tender and non-distended Extremity Negative for no calf tenderness Neuro oriented x3 Assessment & Plan Assessment/Plan (1) Screening for intestinal cancer: PLAN: The patient presents via open access. We plan to proceed with a screening colonoscopy with possible biopsy or polypectomy as indicated. She is aware of the technique, benefit, risk, alternatives. She has had an opportunity to ask and have questions answered. She has tolerated her bowel prep. We will proceed as noted. Aaron Turner M.D., F.A.C.S.
[2021-03-21 06:55] VITALS: BP 104/76; BP 118/83; PULSE 79; RESP 18; TEMP 36.3; O2SAT 99
[2021-03-21 07:00] VITALS: BP 111/88; BP 118/83; PULSE 65; RESP 18; O2SAT 100
[2021-03-21 07:05] VITALS: BP 112/93; BP 118/83; PULSE 75; RESP 18; O2SAT 100
[2021-03-21 07:10] VITALS: BP 112/82; BP 118/83; PULSE 61; RESP 18; TEMP 36.2; O2SAT 100
--- NOTE | 2021-03-22 15:09 | OP.COLON_ITS ---
Patient Name: Ndia Gallegos Procedure Date: 03/21/2021 6:14 AM Date of : 1970 Age: 51 Procedure: Colonoscopy Indications: Screening for colorectal malignant neoplasm Providers: Aaron Turner MD Referring MD: Jose Manuel Zamorano Medicines: See the Anesthesia note for documentation of the administered medications Patient Profile: Last Colonoscopy: none. The patient's first colonoscopy is today. Complications: No immediate complications. Procedure: Pre-Anesthesia Assessment: - Prior to the procedure, a History and Physical was performed, and patient medications and allergies were reviewed. The patient's tolerance of previous anesthesia was also reviewed. The risks and benefits of the procedure and the sedation options and risks were discussed with the patient. All questions were answered, and informed consent was obtained. Prior Anticoagulants: The patient has taken no previous anticoagulant or antiplatelet agents. ASA Grade Assessment: I - A normal, healthy patient. After reviewing the risks and benefits, the patient was deemed in satisfactory condition to undergo the procedure. After I obtained informed consent, the scope was passed under direct vision. Throughout the procedure, the patient's blood pressure, pulse, and oxygen saturations were monitored continuously. The colonoscope was introduced through the anus and advanced to the cecum, identified by appendiceal orifice and ileocecal valve. The colonoscopy was performed without difficulty. The patient tolerated the procedure well. The quality of the bowel preparation was good. The ileocecal valve was photographed. Scope In: 6:36:11 AM Scope Withdrawal Time 0 hours 8 minutes 46 seconds Scope Out: 6:49:55 AM Total Procedure Duration Time 0 hours 13 minutes 44 seconds Findings: Hemorrhoids were found on perianal exam. Multiple diverticula were found in the sigmoid colon. The exam was otherwise without abnormality. Impression: - Hemorrhoids found on perianal exam. - Diverticulosis in the sigmoid colon. - The examination was otherwise normal. - No specimens collected. Recommendation: - Discharge patient to home. - Resume previous diet. - Continue present medications. - Repeat colonoscopy in 10 years for screening purposes. Procedure Code(s): --- Professional --- 16987, Colonoscopy, flexible; diagnostic, including collection of specimen(s) by brushing or washing, when performed (separate procedure) Diagnosis Code(s): --- Professional --- Z12.11, Encounter for screening for malignant neoplasm of colon K64.9, Unspecified hemorrhoids K57.30, Diverticulosis of large intestine without perforation or abscess without bleeding CPT copyright 2017 [employer]. All rights reserved. The codes documented in this report are preliminary and upon supervisor force adjustment review may be revised to meet current compliance requirements. Aaron Turner MD 03/21/2021 6:54:39 AM This report has been signed electronically. Number of Addenda: 0 Note Initiated On: 03/21/2021 6:14 AM
--- NOTE | 2021-03-22 15:09 | OP.CCLET_ITS ---
03/21/2021 Jose Manuel Zamorano Re : Colonoscopy procedure for Nida Gallegos Dear Jaun This procedure was performed on March. My impressions and recommendations are as follows: Impressions : - Hemorrhoids found on perianal exam. - Diverticulosis in the sigmoid colon. - The examination was otherwise normal. - No specimens collected. Recommendations : - Discharge patient to home. - Resume previous diet. - Continue present medications. - Repeat colonoscopy in 10 years for screening purposes. My findings are described in the full procedure note, which is enclosed. If I can be of further assistance, please feel free to contact me at Doctor phone number(s): Work: . Sincerely, Aaron Turner MD 03/21/2021 6:54:39 AM This report has been signed electronically.
== END 2021-03-21 07:28 ==
LOC: EN 05:27 → AC 05:28
PROVIDERS: PCP Family Medicine; Referring Provider Family Medicine; Visit Provider Surgery
PROC: 0DJD8ZZ Inspection of Lower Intestinal Tract, Via Natural or Artificial Opening Endoscopic (ICD-10-PCS; CPT 45378; principal; 2021-03-21 06:25)
DX: Z12.11 Encounter for screening for malignant neoplasm of colon (principal); K57.30 Diverticulosis of large intestine without perforation or abscess without bleeding; K64.9 Unspecified hemorrhoids; F17.210 Nicotine dependence, cigarettes, uncomplicated; Z80.0 Family history of malignant neoplasm of digestive organs
CPT/HCPCS: 45378; J7120; J2405

== ENCOUNTER → 2021-04-30 15:32 | Outpatient (CLI) | payer OTHER, SELFPAY ==
--- NOTE | 2021-04-30 15:44 | RAD_ITS ---
STUDY: X-RAY - LEFT FOOT CLINICAL: Female, 51 years old. Left foot pain. TECHNIQUE: 3 view(s) of the foot. COMPARISON: None. FINDINGS: Normal talus and tarsal bones. Normal visualized subtalar, talonavicular, calcaneocuboid, tarsal and tarsometatarsal articulations. Normal metatarsi. Mild arthrosis of the MTP and IP joints. Ossification of the distal Achilles tendon with a small superior calcaneal spur. RAD/Foot min 3 Views IMPRESSION: Mild arthrosis of the MTP and IP joints. Ossification of the distal Achilles tendon with a small superior calcaneal spur. Electronically Signed: Seun Roche MD at 10:38 EDT , Service support ,
== END ==
PROVIDERS: PCP Family Medicine; Referring Provider Family Medicine; Visit Provider Family Medicine
DX: M79.672 Pain in left foot (principal)
CPT/HCPCS: 73630

== ENCOUNTER 2022-11-30 09:06 | Emergency (ER) | payer OTHER, SELFPAY ==
[2022-11-30 09:07] VITALS: BP 143/100; PULSE 100; RESP 16; TEMP 35.5; O2SAT 100; BMI 25.7
--- NOTE | 2022-11-30 09:17 | CT_ITS ---
STUDY: CT ABDOMEN AND PELVIS WITHOUT CONTRAST REASON FOR EXAM: Female, 52 years old. Right lower quadrant pain, history of previous hysterectomy RADIATION DOSAGE (If Supplied By Facility): CTDIvol = ( 6.19 ) mGy, DLP = ( 282.96 ) mGycm TECHNIQUE: Transaxial images were obtained from the dome of the diaphragm to the symphysis pubis without oral contrast, and without intravenous contrast. Sagittal and coronal images were reconstructed. Individualized dose optimization techniques were used for this CT. COMPARISON: 2018 FINDINGS: The visualized lung bases are unremarkable. The visualized portions of the heart are within normal limits. Normal liver. Normal gallbladder and extrahepatic biliary system. Normal spleen. Normal pancreas. Normal bilateral adrenal glands. No obstructive uropathy, or suspicious solid renal lesion, there are punctate nonobstructing renal stones. Normal visualized stomach. Normal small intestine. Majority of the colon is unremarkable, however, there is evidence of sigmoid diverticulosis, in the mid sigmoid colon there is abnormal thickening of the sigmoid with pericolonic inflammatory stranding consistent with acute diverticulitis. No clear evidence of microperforation or abscess. However, a neoplastic process could also cause a similar appearance and further evaluation of the colon to include colonoscopy is recommended once the acute inflammatory changes have resolved. There is non-visualization of the appendix. Normal abdominal aorta. Normal inferior vena cava. Scattered subcentimeter short axis dimension, likely physiologic mesenteric and retroperitoneal lymph nodes. Normal urinary bladder. There is absence of the uterus consistent with a prior hysterectomy. Normal abdominal wall. Normal osseous structures. CT/Abdomen/Pelvis without Cont IMPRESSION: Acute diverticulitis within the left pelvis without perforation or abscess. There is submucosal thickening and pericolonic inflammatory stranding. Please see discussion above Nonobstructing punctate nephrolithiasis Electronically Signed: Jorge Mcfadden MD at 9:45 EST ,
--- NOTE | 2022-11-30 09:18 | ED.VIS.GI ---
HPI HPI - GI History of Present Illness Chief Complaint: Abd Pain Detail of Chief Complaint: Abdominal pain Informant: patient Abdominal Pain/Flank Pain Current Severity: 01/26 Narrative Narrative: Patient presents with abdominal pain that started initially 3 days ago. She complains of decreased appetite. She had nausea but no vomiting. Pain is around the bellybutton and right lower quadrant. Patient states that it hurts more with walking and coughing. She states the bumps on the right in hurt significantly. At rest she really only rates her pain about a 4 out of 10. She denies any blood in her stool or black tarry stool. She does describe some bladder spasm with urination. She denies frequency or hematuria. She states her temperature got up to 100.0 last night. Patient does have history of kidney stones but states this feels different. Prior similar symptoms: No PFSH PFSH Medical History (Updated 11/30/22 @ 09:[address] Chelsi Valencia, DO) Alcohol use Back pain Blackout Chest pain Former smoker Heartburn History of endometrial hyperplasia History of kidney stones History of stress test Knee pain Kyphosis Severe headache Home Medications cefdinir 300 mg capsule 300 mg PO BID #14 caps 11/30/22 [Rx Last Taken Unknown] hydrocodone-acetaminophen 5-325mg 5mg-325mg 1 tab PO Q4H PRN PRN Pain 2 days #10 TABLETS 11/30/22 [Rx Last Taken Unknown] metronidazole 500 mg tablet 500 mg PO TID #21 tabs 11/30/22 [Rx Last Taken Unknown] Allergy/AdvReac Type Severity Reaction Status Date / Time No Known Allergies Allergy Verified 11/30/22 09:09 Surgical History History of hysterectomy History of tonsillectomy and adenoidectomy Hx of arthroscopy of left knee Hx of lithotripsy Social History (Updated 06/12/21 @ 10:10 by Shara Bearden) household members: spouse, children and other number of children: 3 current occupational status: employed 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, [employer] history of recent travel: Yes Smoking Status: Current every day smoker tobacco type: cigarettes alcohol intake: current alcohol intake frequency: a few times a week details: occasional substance use type: does not use diet: other what type of physical activity do you participate in: none seatbelt use: always do you feel safe at home: Yes additional social history: - Andrea ROS ROS ED Review of Systems ROS Unobtainable: other Constitutional Constitutional ED: Reports lethargy; Denies chills, fever(s), sweats or weight loss Eyes Eyes: Denies blurry vision, change in vision or diplopia ENT ENT ED: Denies rhinorrhea or sore throat Cardiovascular Cardiovascular: Denies chest pain, orthopnea or racing heartbeat Respiratory/Chest Respiratory/Chest: Denies cough, dyspnea, dyspnea on exertion, orthopnea or sputum Gastrointestinal Gastrointestinal: Reports abdominal pain and nausea; Denies diarrhea or vomiting Genitourinary Genitourinary ED: Denies dysuria, hematuria or urinary frequency Musculoskeletal Musculoskeletal: Denies arthralgias, back pain, myalgias or neck pain Integumentary Denies abscess, Abrasions or rash Neurologic Neurologic: Denies headache(s) or weakness Psychiatric Psychiatric: Denies anxiety, depression or suicidal thoughts Endocrine Endocrinology: Denies polydipsia, polyphagia or polyuria Hematologic/Lymphatic Hematologic/Lymphatic: Denies easy bleeding, easy bruising or lymphadenopathy Allergic/Immunologic Allergic/Immunologic ED: Denies mouth swelling, tongue swelling or urticaria EXAM Physical Exam Const Vital Signs: 11/30/22 09:07 Temperature 96 F L Temperature Source Temporal Pulse Rate 100 Respiratory Rate 16 Blood Pressure 143/100 H Blood Pressure Mean 114 Pulse Ox 100 Oxygen Delivery Method Room Air Positive well nourished and well developed General Appearance ED: well developed and NAD HEENT Reports TM's clear and moist mucous membranes normocephalic and atraumatic; Negative for trauma or tenderness Tympanic Membrane ED: Yes TM's clear Eyes PERRL and EOMs intact bilaterally General Eye ED: Negative for pale conjunctiva or scleral icterus Neck no lymphadenopathy, supple and no JVD General: Negative for tenderness Chest Wall inspection of chest normal and palpation of chest normal Chest: Negative for tenderness Resp normal respiratory effort and clear to auscultation bilaterally Effort and Inspection: Negative for respiratory distress or pain with movement Auscultation: Negative for rhonchi, wheezes or diminished lung sounds Cardio regular rate, regular rhythm, S1 normal heart sound, S2 normal heart sound and no murmurs Peripheral Pulses: pulses 2+ throughout GI normal to inspection, nondistended, normoactive bowel sounds, soft to palpation, non-distended and no masses GI Narrative: Tender to palpation over right lower quadrant over McBurney's point. Patient has a positive Rovsing sign. Patient has guarding. There is no rebound or rigidity. Abdomen is soft. Back/Spine no CVA tenderness and no thoracic nor lumbar tenderness Extremity normal to inspection General Extremety ED: Negative for edema General Extremity: Negative for edema Neuro oriented x3, CN's II-XII intact bilaterally, no sensory deficits noted and gait normal Sensorium / Orientation: awake, alert, oriented to person, oriented to place and oriented to time Motor Exam: strength 5/5 throughout and strength abnormal Psych mental status grossly normal Skin no rashes or lesions noted and no wounds MDM MDM MDM Narrative Medical decision making narrative: No established on arrival. Patient denies anything for pain. She was noted to have an elevated white count of 12.4. CT scan of the abdomen pelvis without contrast was obtained which showed acute diverticulitis however the appendix was not visualized. There were no inflammatory changes to the right lower quadrant. Urinalysis was unremarkable. Lactate was normal. LFTs were unremarkable. Lipase was normal. At this point I suspect her symptoms related to acute diverticulitis. Patient tells me she had a colonoscopy last year and was told she had diverticuli. Patient will be started on Omnicef and Flagyl and given a prescription for few [place] for pain. She is advised to follow-up with Dr. Aaron Turner who did her colonoscopy. Patient advised to return if worsening pain, fever, bloody stool, or condition should worsen anyway. At this point I do not feel she has appendicitis but rather acute diverticulitis. Lab Data Attestation: I reviewed the patient's lab results. Labs: Laboratory Results - last 24 hr 11/30/22 11/30/22 11/30/22 09:20 09:20 09:20 WBC 12.4 H RBC 4.44 Hgb 14.4 Hct 41.6 MCV 93.7 MCH 32.4 H MCHC 34.6 RDW Std Deviation 44.2 H RDW Coeff of Kristopher 12.8 Plt Count 266 MPV 10.3 Immature Gran % (Auto) 0.300 Neut % (Auto) 76.0 H Lymph % (Auto) 14.2 L [place] % (Auto) 6.8 Eos % (Auto) 2.5 Baso % (Auto) 0.2 Absolute Neuts (auto) 9.5 H Absolute Lymphs (auto) 1.77 Nucleated RBC % 0 Sodium 134 L Potassium 3.9 Chloride 98 Carbon Dioxide 28.0 Anion Gap 8 BUN 13 Creatinine 0.79 Estim Creat Clear Calc 72.75 Est GFR (MDRD) Af Amer 99 Est GFR (MDRD) Non-Af 82 BUN/Creatinine Ratio 16.5 Glucose 95 Lactic Acid 1.3 Calcium 10.2 H Total Bilirubin 1.10 H AST 15 ALT 22 Alkaline Phosphatase 81 Total Protein 8.3 H Albumin 3.6 Globulin 4.7 H Albumin/Globulin Ratio 0.8 L Lipase 52 L Urine Color Urine Clarity Urine pH Ur Specific [place] Urine Protein Urine Glucose (UA) Urine Ketones Urine Occult Blood Urine Nitrite Urine Bilirubin Urine Urobilinogen Ur Leukocyte Esterase 11/30/22 09:39 WBC RBC Hgb Hct MCV MCH MCHC RDW Std Deviation RDW Coeff of Kristopher Plt Count MPV Immature Gran % (Auto) Neut % (Auto) Lymph % (Auto) [place] % (Auto) Eos % (Auto) Baso % (Auto) Absolute Neuts (auto) Absolute Lymphs (auto) Nucleated RBC % Sodium Potassium Chloride Carbon Dioxide Anion Gap BUN Creatinine Estim Creat Clear Calc Est GFR (MDRD) Af Amer Est GFR (MDRD) Non-Af BUN/Creatinine Ratio Glucose Lactic Acid Calcium Total Bilirubin AST ALT Alkaline Phosphatase Total Protein Albumin Globulin Albumin/Globulin Ratio Lipase Urine Color Yellow Urine Clarity Clear Urine pH 6.0 Ur Specific [place] 1.010 Urine Protein Negative Urine Glucose (UA) Normal Urine Ketones Negative Urine Occult Blood 50 H Urine Nitrite Negative Urine Bilirubin Negative Urine Urobilinogen Normal Ur Leukocyte Esterase Negative Radiography Diagnostic Testing: Clinical Impression(s) from Imaging Studies Abdomen/Pelvis CT 11/30/22 09:17 IMPRESSION: Acute diverticulitis within the left pelvis without perforation or abscess. There is submucosal thickening and pericolonic inflammatory stranding. Please see discussion above Nonobstructing punctate nephrolithiasis Electronically Signed: Jorge Mcfadden MD at 9:45 EST , Discharge Plan Triage Chief Complaint: Abd Pain ED Provider: Chelsi Valencia Dx/Rx/DC Orders Clinical Impression: Acute diverticulitis Instructions: ED Diverticulitis Prescriptions: New metronidazole 500 mg tablet 500 mg PO TID Qty: 21 0RF cefdinir 300 mg capsule 300 mg PO BID Qty: 14 0RF hydrocodone-acetaminophen [hydrocodone-acetaminophen] 5-325 mg tablet 1 tab PO Q4H PRN PRN (Reason: Pain) 2 Days Qty: 10 0RF Primary Care Provider: Jose Manuel Zamorano Referrals: Debra Hassan MD [Med Staff - Active Staff] - 3-5 Days Aaron Turner MD [Med Staff - Active Staff] - 3-5 Days Jose Manuel Zamorano MD [Primary Care Provider] - Disposition Disposition: Home, Self Care
[2022-11-30 09:33] LABS: Absolute Lymphocyte Count 1.77 X10^3/uL (0.83-4.51); Absolute Neutrophil Count 9.5 X10^3/uL (2.0-7.7); Basophil# 0.02 X10^3/uL; Basophil% 0.2 % (0-1); Eosinophil# 0.31 X10^3/uL; Eosinophils% 2.5 % (0-5); Hematocrit 41.6 % (37-47); Hemoglobin 14.4 g/dL (12.0-15.0); Lymphocyte # 1.77 X10^3/ul (0.83-4.51); Lymphocyte % 14.2 % (19-41); Mean Corp Hgb Conc 34.6 g/dL (32-36); Mean Corpuscular Hgb 32.4 pg (27.0-32.0); Mean Corpuscular Volume 93.7 fL (81-99); Mean Platelet Vol. 10.3 fl (6.2-12.0); Monocyte# 0.84 X10^3/uL; Monocyte% 6.8 % (0-10); NRBC Flagged by Analyzer 0 % (0-5); Neutrophil # 9.46 X10^3/uL (2.7-7.7); Platelet Count 266 K/mm3 (150-450); RBC Distribution Width CV 12.8 % (11.6-14.6); RBC Distribution Width SD 44.2 fl (35.1-43.9); Red Blood Count 4.44 M/mm3 (4.2-5.4); White Blood Count 12.4 K/mm3 (4.4-11.0)
[2022-11-30] MEDS: 0.9% Normal Saline 1,000 ML 125 ML IV (09:42)
[2022-11-30 09:44] LABS: Mucous, Urine 0 SEEN /hpf (<or=2+); White Blood Cells 0 SEEN /hpf (0-5)
[2022-11-30 09:49] LABS: Color, Urine Yellow (Yellow); Glucose, Dipstick Normal (Normal); Ketone-Dipstick Negative (Negative); Leukocyte Esterase-Dipstick Negative /ul (Negative); Nitrite-Dipstick Negative (Negative); Occult Blood-Urine 50 /ul (Negative); Protein-Dipstick Negative (Negative); Urine Bilirubin Dipstick Negative (Negative); Urine Clarity Clear (Clear); Urine Urobilinogen Normal (Normal)
[2022-11-30 09:52] LABS: Lactic Acid 1.3 mmol/L (0.4-1.9)
[2022-11-30 09:53] LABS: ALB/GLOB Ratio 0.8 RATIO (0.9-2.4); AST(SGOT) 15 U/L (15-37); Alanine Aminotransfer ALT/SGPT 22 U/L (13-56); Albumin, Serum 3.6 g/dL (3.2-5.0); Alkaline Phosphatase 81 U/L (45-117); Anion Gap 8 (5-15); BUN 13 mg/dL (7-18); BUN/Creat Ratio 16.5 RATIO (10-20); Calcium,Total 10.2 mg/dL (8.5-10.1); Chloride 98 mmol/L (98-107); Creatinine, Serum 0.79 mg/dL (0.55-1.02); EST Glomerular Filtration Rate 82 mL/min (>60); Est Glom Filt Rate - Afr Amer 99 mL/min (>60); Estimated Creatinine Clearance 72.75 ml/min; Globulin 4.7 g/dL (2.2-4.2); Glucose 95 mg/dL (74-106); Lipase 52 U/L (73-393); Potassium 3.9 mmol/L (3.5-5.1); Protein, Total 8.3 g/dL (6.4-8.2); Sodium Level 134 mmol/L (136-145)
[2022-11-30 09:59] LABS: Red Blood Cells-Urine 0-5 SEEN /hpf (0-5)
[2022-11-30 10:00] LABS: Bacteria RARE /hpf (None Seen); Squamous Epithelial Cells - UA 0-5 SEEN /hpf (5-10)
[2022-11-30] MEDS: metroNIDAZOLE 500 MG Tablet PO (10:11)
[2022-11-30] MEDS: Cefdinir 300 MG Capsule PO (10:11)
== END 2022-11-30 11:00 | disposition home or self-care (01) ==
PROVIDERS: Emergency Provider Emergency Medicine; PCP Family Medicine; Visit Provider Emergency Medicine
DX: K57.92 Diverticulitis of intestine, part unspecified, without perforation or abscess without bleeding (principal); R11.0 Nausea; N32.89 Other specified disorders of bladder
CPT/HCPCS: 74176; 80053; 81001; 83605; 83690; 85025; 96360; 99283; J7030; A4216

== ENCOUNTER → 2023-01-22 | Outpatient (CLI) | payer OTHER, SELFPAY ==
[2023-01-22 10:00] LABS: Erythrocyte Sedimentation Rate 1 mm/hr (0-30)
== END | disposition home or self-care (01) ==
LOC: LAB 08:31
PROVIDERS: PCP Family Medicine; Referring Provider Surgery; Visit Provider Surgery
DX: K57.32 Diverticulitis of large intestine without perforation or abscess without bleeding (principal)
CPT/HCPCS: 36415; 85652

== ENCOUNTER 2023-02-03 09:55 | Day surgery (SDC) | payer OTHER, SELFPAY ==
[2023-02-03] VITALS (7 sets, daily range): BP systolic 105–123; BP diastolic 61–90; PULSE 62–73; RESP 16; TEMP 36.7–36.8; O2SAT 100; BMI 26.8
[2023-02-03] MEDS: Lactated Ringers 1,000 ML 15 ML IV (10:16)
--- NOTE | 2023-02-03 10:35 | HP.PCM_ITS ---
History and Physical Date of Admission: 02/03/23 Visit Reasons:?ED FOR DIVERTICULTISIS Chief Complaint: F/U Diverticulitis Director Drug Required: No Is patient in pain?: No Allergies No Known Allergies Allergy (Verified 01/22/23 08:18) Medications hydrocodone-acetaminophen 5-325mg 5mg-325mg 1 tab PO Q4H PRN PRN Pain 2 days #10 TABLETS 11/30/22 [Rx Confirmed 01/22/23] PFSH Medical History?(Updated 01/22/23 @ 06:[address] Aaron Turner MD) Alcohol use Back pain Blackout Chest pain Former smoker Heartburn History of endometrial hyperplasia History of kidney stones History of stress test Knee pain Kyphosis Severe headache Surgical History? History of hysterectomy History of tonsillectomy and adenoidectomy Hx of arthroscopy of left knee Hx of lithotripsy Family History?(Updated 01/22/23 @ 08:11 by Rose Vega) Mother ArthritisFather Skin cancer Social History?(Updated 06/12/21 @ 10:10 by Shara Bearden) household members:? spouse, children and other number of children:? 3 current occupational status:? employed current occupation:? [employer] - peri[employer], [employer] history of recent travel:? Yes Smoking Status:? Current every day smoker tobacco type: cigarettes alcohol intake:? current alcohol intake frequency: a few times a week details:? occasional substance use type:? does not use diet:? other what type of physical activity do you participate in:? none seatbelt use:? always do you feel safe at home:? Yes additional social history:? - Andrea HPI HPI HPI: 53-year-old female.? She was seen at the [facility] [place] emergency room on November 30, 2022 with concerns about a 3-day history of abdominal pain and decreased appetite.? She has had some nausea but no vomiting.? Pain is localized to the umbilicus and right lower quadrant.? She had a mild fever to 100.? Laboratory at that time demonstrated a white blood cell count of 12.4 with a hemoglobin 14.4 [place] crit 41.6 platelet count 266,000.? BUN is 13 creatinine 0.79.? Total bilirubin was 1.1.? The remainder of her liver function tests were normal.? Lipase was 52.? Urinalysis was not remarkable.? She had a abdominal pelvic CT scan.? Acute diverticulitis within the left pelvis without perforation or abscess identified.? There was submucosal thickening and pericolonic inflammatory stranding.? Additional note is made of nonobstructing punctate nephrolithiasis.? The patient was diagnosed with sigmoid diverticulitis and is discharged on oral metronidazole and cefdinir. I have personally reviewed her noncontrasted CT images of November 30, 2022.? I certainly concur with the extensive diverticular disease as well as pericolonic stranding in the mid sigmoid colon. I have previously assisted her on March 21, 2021 with a screening colonoscopy.? Hemorrhoids were identified and multiple diverticula were fine the sigmoid colon the exam was otherwise unremarkable and follow-up in 10 years recommended. The patient was on clear liquids for 5 days.? She took a full course of antibiotics.? She states that she still is not feeling correctly.? She will eat and feel like she is bloated.? She has some discomfort in the low abdomen and suprapubic area.? No fevers currently. ROS General General: No weight change, appetite, fatigue, colon cancer, breast cancer or weakness HEENT HEENT: No difficulty swallowing, eye injury, eye surgery, swollen glands or hoarseness Endo Endocrine: No thyroid disease, diabetes mellitus, thyroid cancer, Hair loss, heat intolerance or cold intolerance Skin Skin: No rash or changing moles Breast Breast: No left breast lump, right breast lump, nipple discharge, breast pain, abnormal mammogram, abnormal US or breast enlargement Musc Musculoskeletal: No back problems, arthritis, rheumatoid arthritis, gout or joint pain Cardio Cardiovascular: No murmur, pacemaker, heart disease, atrial fibrillation, high blood pressure, heart attack, heart stent, palpitations, shortness of breat with exertion or chest pain Psych Psychiatric: No depression, anxiety or hearing voices Resp Respiratory: No shortness of breath, No sleep apnea, No cough, No COPD, No asthma, No emphysema and No wheezing Gastro Gastrointestinal: No abdominal pain, No nausea or vomiting, No diarrhea, No co nstipation, No blood in stool, Yes acid reflux, Yes hemorrhoids, No ulcers, No gallbladder problem and No black,tarry stools Additional Details: Diverticulitis [place] Hematologic: No blood thinners, No blood disorders, No bleeding, No anemia and No blood clots Neuro Neurologic: No system reviewed and no additional complaints, except as documented, No as per HPI, No abnormal gait, No abnormal hearing, No abnormal movements, No abnormal speech, No behavioral changes, No burning sensations, No confusion, No convulsions, No disequilibrium, No dizziness, No localized weakness, No frequent falls, No headache(s), No lack of coordination, No loss of vision, No memory loss, No numbness, No other visual disturbances, No radicular pain, No restless legs, No sensory deficit, No syncope, No tingling, No tremor(s), No weakness and No other Exam Const General: cooperative, healthy appearing, comfortable and no acute distress [facility] Head: normal to inspection Eyes General: appearance normal, both eyes and all related structures Neck Neck: normal visual inspection Chest Chest palpation & inspection: normal inspection of the chest Resp Effort & Inspection: normal respiratory effort Auscultation: clear to auscultation bilaterally Cardio Rate: regular rate Rhythm: regular rhythm GI Inspection: normal to inspection Other: Mildly tender to palpation left lower quadrant infraumbilical midline.? No rebound or guarding. Musc Cervical Spine: normal cervical lordosis Neuro General: patient alert and patient oriented x3 Extrem General: no calf tenderness Psych Appearance: grossly normal Assessment and Plan Assessment and Plan (1) Sigmoid diverticulitis: ?Status:?Acute ?Plan: Patient appears to still have smoldering residual of sigmoid diverticulitis.? I do recommend to her a colonoscopy because of failure of resolution of symptoms.? I would also like to get a sed rate.? She is aware of the technique, benefit, risk, alternatives.? She has had an opportunity to ask and have questions answered.? She is additionally aware that if chronic smoldering disease identified she might be a future candidate for laparoscopic sigmoid colectomy.? I appreciate the ongoing option of assisting with the surgical care. Copy: Dr. Jose Manuel Turner M.D., F.A.C.S. I have examined the patient and the H&P has been reviewed. There are no clinical changes since date of exam. Aaron Turner M.D., F.A.C.S.
--- NOTE | 2023-02-03 12:04 | OP.COLON_ITS ---
Patient Name: Nida Gallegos Procedure Date: 02/03/2023 11:35 AM Date of : 1970 Age: 53 Procedure: Colonoscopy Indications: Diverticulitis, Follow-up of diverticulitis Providers: Aaron Turner MD Referring MD: Jose Manuel Zamorano Medicines: See the Anesthesia note for documentation of the administered medications Patient Profile: Last Colonoscopy: within the past 3 years. Complications: No immediate complications. Procedure: Pre-Anesthesia Assessment: - Prior to the procedure, a History and Physical was performed, and patient medications and allergies were reviewed. The patient's tolerance of previous anesthesia was also reviewed. The risks and benefits of the procedure and the sedation options and risks were discussed with the patient. All questions were answered, and informed consent was obtained. Prior Anticoagulants: The patient has taken no previous anticoagulant or antiplatelet agents. ASA Grade Assessment: II - A patient with mild systemic disease. After reviewing the risks and benefits, the patient was deemed in satisfactory condition to undergo the procedure. After I obtained informed consent, the scope was passed under direct vision. Throughout the procedure, the patient's blood pressure, pulse, and oxygen saturations were monitored continuously. The Colonoscope was introduced through the anus and advanced to the cecum, identified by appendiceal orifice and ileocecal valve. The colonoscopy was performed without difficulty. The patient tolerated the procedure well. The quality of the bowel preparation was excellent. The ileocecal valve and the appendiceal orifice were photographed. Scope In: 11:45:48 AM Scope Withdrawal Time 0 hours 7 minutes 17 seconds Scope Out: 11:57:50 AM Total Procedure Duration Time 0 hours 12 minutes 2 seconds Findings: Hemorrhoids were found on perianal exam. Multiple medium-mouthed diverticula were found in the sigmoid colon. The exam was otherwise without abnormality. Impression: - Hemorrhoids found on perianal exam. - Diverticulosis in the sigmoid colon. - The examination was otherwise normal. - No specimens collected. Recommendation: - Discharge patient to home. - Resume previous diet. - Continue present medications. - Repeat colonoscopy in 10 years for screening purposes. - Telephone my office if symptomatic PRN. Sigmoid diverticulosis identified. There was no focal evidence that would suggest acute inflammation. Lumen appeared to be widely patent. No stricturing. No purulence identified. At this point I am recommending conservative nonoperative management. It is of note that the diverticula appeared to be concentrated in the mid sigmoid colon and the distal sigmoid colon appeared to be diverticulosis free. Procedure Code(s): --- Professional --- 99861, Colonoscopy, flexible; diagnostic, including collection of specimen(s) by brushing or washing, when performed (separate procedure) Diagnosis Code(s): --- Professional --- K64.9, Unspecified hemorrhoids K57.32, Diverticulitis of large intestine without perforation or abscess without bleeding K57.30, Diverticulosis of large intestine without perforation or abscess without bleeding CPT copyright 2017 [employer]. All rights reserved. The codes documented in this report are preliminary and upon motorcyles final inspector review may be revised to meet current compliance requirements. Aaron Turner MD 02/03/2023 12:04:00 PM This report has been signed electronically. Number of Addenda: 0 Note Initiated On: 02/03/2023 11:35 AM
--- NOTE | 2023-02-03 12:04 | OP.CCLET_ITS ---
02/03/2023 Jose Manuel Zamorano Re : Colonoscopy procedure for Nida Gallegos Almar Jaun This procedure was performed on Friday, February 03, 2023. My impressions and recommendations are as follows: Impressions : - Hemorrhoids found on perianal exam. - Diverticulosis in the sigmoid colon. - The examination was otherwise normal. - No specimens collected. Recommendations : - Discharge patient to home. - Resume previous diet. - Continue present medications. - Repeat colonoscopy in 10 years for screening purposes. - Telephone my office if symptomatic PRN. Sigmoid diverticulosis identified. There was no focal evidence that would suggest acute inflammation. Lumen appeared to be widely patent. No stricturing. No purulence identified. At this point I am recommending conservative nonoperative management. It is of note that the diverticula appeared to be concentrated in the mid sigmoid colon and the distal sigmoid colon appeared to be diverticulosis free. My findings are described in the full procedure note, which is enclosed. If I can be of further assistance, please feel free to contact me at Doctor phone number(s): Work: . Sincerely, Aaron Turner MD 02/03/2023 12:04:00 PM This report has been signed electronically.
[2023-02-03] MEDS: Ondansetron ODT 4 MG Tablet PO (12:38)
== END 2023-02-03 13:00 | disposition home or self-care (01) ==
LOC: EN 09:56 → AC 09:57
PROVIDERS: PCP Family Medicine; Referring Provider Family Medicine; Visit Provider Surgery
PROC: 0DJD8ZZ Inspection of Lower Intestinal Tract, Via Natural or Artificial Opening Endoscopic (ICD-10-PCS; CPT 45378; principal; 2023-02-03 10:55)
DX: K57.32 Diverticulitis of large intestine without perforation or abscess without bleeding (principal); K64.4 Residual hemorrhoidal skin tags
CPT/HCPCS: 45378; J7120; J2405

== ENCOUNTER → 2023-03-11 | Outpatient (CLI) | payer OTHER, SELFPAY ==
--- NOTE | 2023-03-11 11:28 | MRI_ITS ---
EXAM: MR RIGHT LOWER EXTREMITY WITHOUT INTRAVENOUS CONTRAST, KNEE CLINICAL INDICATION: KNEE PAIN TECHNIQUE: Multiplanar and multisequence MR images of the right knee without intravenous contrast. COMPARISON: No relevant prior studies available. FINDINGS: BONES/JOINTS: Moderate joint effusion. Patchy marrow edema involving the tibial spine and posterior aspect of the medial tibial plateau. Bones are otherwise unremarkable. EXTENSOR MECHANISM: Unremarkable. MEDIAL MENISCUS: Partial-thickness tear involving the posterior root ligament of the medial meniscus. LATERAL MENISCUS: Unremarkable. MEDIAL CAPSULE/SUPPORTING STRUCTURES: Unremarkable. Intact. LATERAL CAPSULE/SUPPORTING STRUCTURES: Unremarkable. Lateral collateral ligamentous complex, inclusive of the popliteal tendon, are intact. ANTERIOR CRUCIATE LIGAMENT: Unremarkable. Intact. POSTERIOR CRUCIATE LIGAMENT: Unremarkable. Intact. MUSCLES: Unremarkable. CARTILAGE: Moderate grade fissure of the articular cartilage of the medial patellar facet with no subchondral marrow signal alterations. FLUID: Moderate size suprapatellar joint effusion without significant synovitis or intra-articular ossific bodies. No Ovalles''s cyst. OTHER SOFT TISSUES: See above. MRI/Lower Ext Joint Only (Routine) IMPRESSION: 1. Partial-thickness tear involving the posterior root ligament of the medial meniscus. No other meniscal tear or evidence for peripheral meniscal extrusion. 2. Moderate grade fissure of the articular cartilage of the medial patellar facet. 3. Moderate size suprapatellar joint effusion without Ovalles''s cyst. Electronically Signed: Taco Paredes MD at 21:27 EDT ,
== END | disposition home or self-care (01) ==
LOC: MRI 11:16
PROVIDERS: PCP Family Medicine; Referring Provider Student in an Organized Health Care Education/Training Program; Visit Provider Student in an Organized Health Care Education/Training Program
DX: S83.8X1A Sprain of other specified parts of right knee, initial encounter (principal)
CPT/HCPCS: 73721

== ENCOUNTER → 2023-03-23 | Outpatient (CLI) | payer OTHER, SELFPAY ==
--- NOTE | 2023-03-23 13:57 | EKG12_ITS ---
Test Reason : PRE-OP Blood Pressure : / mmHG Vent. Rate : 051 BPM Atrial Rate : 051 BPM P-R Int : 126 ms QRS Dur : 082 ms QT Int : 444 ms P-R-T Axes : 007 -05 019 degrees QTc Int : 409 ms Sinus bradycardia Low voltage QRS Borderline ECG Confirmed by FRED HARRSI, SHE ([id number]), newspaper editor managing DEBRA DOUGHERTY ([id number]) on 03/24/2023 8:53:44 AM Referred By: Nick Bey Confirmed By:SHE IBARRA MD
--- NOTE | 2023-03-23 14:10 | RAD_ITS ---
EXAM: XR CHEST, 2 VIEWS CLINICAL INDICATION: PRE-OP TECHNIQUE: Frontal and lateral views of the chest. COMPARISON: December 13, 2020. FINDINGS: LUNGS AND PLEURAL SPACES: Unremarkable. No consolidation or edema. No pneumothorax. No effusion. HEART: Unremarkable. Cardiac silhouette not enlarged. MEDIASTINUM: Central airways and mediastinal contour are unremarkable. BONES/JOINTS: Unremarkable. SOFT TISSUES: Unremarkable. RAD/Chest PA and Lateral IMPRESSION: No radiographic evidence of acute cardiopulmonary disease. Electronically Signed: Michell Ghosh MD at 7:55 EDT ,
[2023-03-23 15:27] LABS: Hematocrit 39.2 % (37-47); Hemoglobin 13.1 g/dL (12.0-15.0); Mean Corp Hgb Conc 33.4 g/dL (32-36); Mean Corpuscular Hgb 31.7 pg (27.0-32.0); Mean Corpuscular Volume 94.9 fL (81-99); Mean Platelet Vol. 10.9 fl (6.2-12.0); Platelet Count 237 K/mm3 (150-450); RBC Distribution Width CV 12.8 % (11.6-14.6); RBC Distribution Width SD 44.6 fl (35.1-43.9); Red Blood Count 4.13 M/mm3 (4.2-5.4); White Blood Count 6.7 K/mm3 (4.4-11.0)
[2023-03-23 15:47] LABS: Anion Gap 4 (5-15); BUN 9 mg/dL (7-18); BUN/Creat Ratio 15.5 RATIO (10-20); Calcium,Total 9.4 mg/dL (8.5-10.1); Chloride 106 mmol/L (98-107); Creatinine, Serum 0.58 mg/dL (0.55-1.02); EST Glomerular Filtration Rate 116 mL/min (>60); Est Glom Filt Rate - Afr Amer 141 mL/min (>60); Glucose 86 mg/dL (74-106); Potassium 3.9 mmol/L (3.5-5.1); Sodium Level 138 mmol/L (136-145)
== END | disposition home or self-care (01) ==
LOC: PSN 03-25 12:54
PROVIDERS: PCP Family Medicine; Referring Provider Student in an Organized Health Care Education/Training Program; Visit Provider Student in an Organized Health Care Education/Training Program
DX: Z01.818 Encounter for other preprocedural examination (principal)
CPT/HCPCS: 36415; 71046; 80048; 85027; 93005

== ENCOUNTER 2023-03-26 08:29 | Day surgery (SDC) | payer OTHER, SELFPAY ==
[2023-03-26] VITALS (8 sets, daily range): BP systolic 96–126; BP diastolic 66–85; PULSE 54–80; RESP 16–18; TEMP 36.8–37.5; O2SAT 96–100; BMI 27.7
[2023-03-26] MEDS: Lactated Ringers 1,000 ML 15 ML IV ×2 (08:55→11:31)
[2023-03-26] MEDS: Cefazolin 2 GM in 0.9% Normal Saline 100 ML IV (10:14)
[2023-03-26] MEDS: Epinephrine (1 mg/ml) 1 MG/ML VIAL (10:51)
[2023-03-26] MEDS: Bupivacaine 0.25% 30 ML Vial (11:54)
--- NOTE | 2023-03-26 12:28 | DCINST_ITS ---
Discharge Instructions Follow Up Care Test Results: Test results from this visit will be discussed in further detail at your follow- up appointment, if applicable. Discharge Plan Admission Primary Reason for Your Visit: Right knee arthroscopy Attending Provider: Nick Bey Primary Care Provider: Jose Manuel Zamorano Instructions Additional Instructions / Restrictions: Follow preprinted instructions from your surgeons office. Discharge Orders/Prescriptions Prescriptions: New oxycodone 5 mg tablet 10 mg PO Q6H PRN (Reason: pain) 7 Days Qty: 42 0RF Referrals / Follow Up: Nick Bey DO [Med Staff - Active Staff] - Jose Manuel Zamorano MD [Primary Care Provider] - Disposition Disposition (needs filled in before D/C Order can be placed): Home, Self Care
--- NOTE | 2023-03-26 12:28 | OP.PCM_ITS ---
Report of Operation Date of Procedure: 03/26/23 Description of Surgical Findings:: Preoperative diagnosis: 1. Right knee medial meniscus posterior root avulsion 2. Right knee medial and patellofemoral compartment chondromalacia Postoperative diagnosis: 1. Right knee medial meniscus posterior root avulsion 2. 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 Carmichael Complications: None apparent Drains: None Estimated blood loss: 25 cc Urinary output: None recorded IV fluids: Per anesthesia record Specimens: None Surgical implants: Arthrex 4.75 mm peek swivel lock anchor x1 Surgical indications: This is a 53-year-old female seen in the outpatient setting for right knee pain. X-rays demonstrated minimal arthritic changes. An MRI was obtained due to mechanical symptoms. MRI was consistent with degener ative changes in the medial and patellofemoral compartments as well as meniscal extrusion and meniscal root injury. There appeared to be some remaining root attachment however given the meniscal extrusion and her persistent symptoms despite home exercise and oral NSAIDs, I recommended surgical intervention in the form of right knee diagnostic and operative arthroscopy with chondroplasty and meniscal root repair. The risks, benefits, alternatives the procedure were reviewed with the patient at length and she agreed to proceed. Risk included but were not limited to bleeding, flexion, loss of life or limb, need for additional surgery, persistent pain, posttraumatic arthritis, nonhealing wounds or meniscus, neurovascular injury, persistent mechanical symptoms, DVT or PE, risk of anesthesia. Patient expressed understanding of these risks and wished to proceed with surgery. Description of procedure: Patient was identified in the preoperative holding area by name, medical record number, and date of . The operative extremity was marked. Informed consent was confirmed with the patient. All questions were answered to his satisfaction. At time of her procedure, patient was brought to the operative suite and positioned supine a standard operating table. All bony prominences were well- padded. General anesthesia was induced with a laryngeal mask airway placed. After adequate anesthesia and securing the tube, a well-padded pneumatic tourniquet was applied to the operative upper thigh. The operative extremity was placed in a circumferential arthroscopic leg henson. A well leg henson was placed underneath the well thigh. We then prepped and draped the operative lower extremity in a normal, sterile orthopedic fashion. 2 g Ancef was administered prior to the incision by anesthesia staff. We then performed a timeout with all parties in attendance in agreement with the side, site, and operation be performed. No concerns were voiced and we elected to proceed. I first exsanguinated the operative lower extremity and Esmarch bandage. Tourniquet was inflated 250 mmHg remained up for approximately 65 minutes. Esmarch was removed. A standard anterior lateral portal was established in standard fashion. Diagnostic arthroscopy was commenced. Grade III chondromalacia was noted at the patellofemoral joint in the central trochlea and along the undersurface of the patella. Medial lateral gutters were unremarkable. Medial compartment was entered with a valgus stress. Standard anteromedial portal was established under direct visualization with a spinal needle and subsequent 11 blade scalpel. Medial meniscus was probed. There is grade III chondromalacia in the medial femoral condyle. Extrusion was evident. The meniscal root was probed. There appeared to be minimal attachment remaining at the meniscal root and with some probing these fibers were torn iatrogenically suggesting inevitable full-thickness root injury. It was at this time I elected to proceed with meniscal root repair. Intercondylar notch demonstrated significant hypertrophic changes of Hoffa's fat pad which appeared to be impinging within the medial and lateral as well as patellofemoral compartments. This was debrided with a radial resector. Lateral compartment was entered with a qeilqd-on-pbus stress and appeared pristine. Medial compartment was reentered. I performed a minimal osteoplasty in the notch to allow for instrument passing to the posterior root. Posterior root was debrided with a radial resector. I performed a chondroplasty of the medial femoral condyle to a stable rim of cartilage with a radial resector. I then placed 2 loop sutures via meniscal scorpion in the posterior portion of the meniscus as close to the meniscal root remanent as possible while achieving sufficient and adequate purchase. The sutures were tensioned. I made an accessory portal far medially to safely position sutures during drilling of our bone tunnel. I also performed a percutaneous release of the MCL with an 18-gauge spinal needle to allow for adequate access to the medial compartment. I then proceeded with bone tunnel placement. I utilized an ACL tibial guide at the posterior root attachment. A stab incision was made along the anterior medial tibial metaphysis. I drilled bicortically at the meniscal root. Flip cutter was used to drill and subsequently flipped within the joint. I retrodrilled approximately 10 mm to assist with meniscal-bone healing. I then passed a passing suture through the tibial tunnel and retrieved this out the anteromedial portal. Fiber link sutures were retrieved out the anteromedial portal and shuttled through the bone tunnel. Sutures were tensioned. I then drilled and tapped for a swivel lock anchor just distal to the bone tunnel. Sutures were tensioned and swivel lock anchor was placed. I probed the meniscus to determine appropriate tension and felt this was adequate and appropriate. Final tightening was performed with a swivel lock. Sutures were cut flush with the anchor. The knee was brought through range of motion and appeared stable. The knee was thoroughly irrigated with normal saline. I anesthetized the portal sites and bone tunnel incision with 30 cc total of quarter percent plain bupivacaine. Patient tolerated procedure well without apparent complication. Incisions were closed after tourniquet was deflated. Hemostasis was excellent. Portal sites were closed in interrupted [id number] fashion with 4-0 nylon suture. A bulky compression dressing was applied. Patient was placed in a T ROM brace set from 0 to 90 degrees and locked in full extension. Post Operative Plan: Weightbearing: Nonweightbearing operative extremity. Range of motion 0-90 degrees while in bed or resting. Knee brace to be locked in full extension when transferring on crutches and when sleeping. Plan to initiate physical therapy in 2 weeks at first follow-up. Antibiotics: Ancef 2 g prior to incision DVT Prophylaxis: 81 mg aspirin twice daily starting postoperative day #1 Murrell: None Dressing: Okay to remove postoperative day #2 and shower X-Rays: None Follow-up: 2 weeks in my office
[2023-03-26] MEDS: Ketorolac 30 MG/ML Syringe IV (12:32)
== END 2023-03-26 14:39 | disposition home or self-care (01) ==
PROVIDERS: PCP Family Medicine; Referring Provider Student in an Organized Health Care Education/Training Program; Visit Provider Student in an Organized Health Care Education/Training Program
PROC: (CPT 29870; principal; 2023-03-26 09:35)
DX: S83.241A Other tear of medial meniscus, current injury, right knee, initial encounter (principal); M22.41 Chondromalacia patellae, right knee; Z87.891 Personal history of nicotine dependence; X58.XXXA Exposure to other specified factors, initial encounter
CPT/HCPCS: 29882; 01400; 64447; J7120; J2405

== ENCOUNTER 2023-06-18 08:31 | Day surgery (SDC) | payer OTHER, SELFPAY ==
[2023-06-16 11:31] LABS: Absolute Lymphocyte Count 1.45 X10^3/uL (0.83-4.51); Absolute Neutrophil Count 2.6 X10^3/uL (2.0-7.7); Basophil# 0.03 X10^3/uL; Basophil% 0.6 % (0-1); Eosinophil# 0.35 X10^3/uL; Eosinophils% 7.2 % (0-5); Hematocrit 37.3 % (37-47); Hemoglobin 12.5 g/dL (12.0-15.0); Lymphocyte # 1.45 X10^3/ul (0.83-4.51); Lymphocyte % 29.8 % (19-41); Mean Corp Hgb Conc 33.5 g/dL (32-36); Mean Corpuscular Hgb 32.5 pg (27.0-32.0); Mean Corpuscular Volume 96.9 fL (81-99); Mean Platelet Vol. 10.2 fl (6.2-12.0); Monocyte# 0.39 X10^3/uL; NRBC Flagged by Analyzer 0 % (0-5); Neutrophil # 2.63 X10^3/uL (2.7-7.7); Neutrophil % 54.2 % (47-70); Platelet Count 232 K/mm3 (150-450); RBC Distribution Width CV 13.2 % (11.6-14.6); RBC Distribution Width SD 47.1 fl (35.1-43.9); Red Blood Count 3.85 M/mm3 (4.2-5.4); White Blood Count 4.9 K/mm3 (4.4-11.0)
[2023-06-16 11:58] LABS: Anion Gap 5 (5-15); BUN 13 mg/dL (7-18); BUN/Creat Ratio 21.1 RATIO (10-20); Calcium,Total 8.9 mg/dL (8.5-10.1); Chloride 108 mmol/L (98-107); Creatinine, Serum 0.62 mg/dL (0.55-1.02); EST Glomerular Filtration Rate 108 mL/min (>60); Est Glom Filt Rate - Afr Amer 131 mL/min (>60); Glucose 85 mg/dL (74-106); Potassium 3.8 mmol/L (3.5-5.1); Sodium Level 140 mmol/L (136-145)
[2023-06-18 09:09] VITALS: BP 125/90; PULSE 74; RESP 16; TEMP 36.2; O2SAT 99; BMI 29.7
[2023-06-18] MEDS: Lactated Ringers 1,000 ML 15 ML IV (09:14)
[2023-06-18] MEDS: Cefazolin 2 GM in 0.9% Normal Saline 100 ML IV (09:55)
[2023-06-18] MEDS: Epinephrine (1 mg/ml) 1 MG/ML VIAL (10:11)
[2023-06-18] MEDS: Bupivacaine Mpf 0.5% 30 ML VIAL (10:34)
--- NOTE | 2023-06-18 10:41 | OP.PCM_ITS ---
Report of Operation Date of Procedure: 06/18/23 Description of Surgical Findings:: Preoperative diagnosis: 1. Right knee postoperative arthrofibrosis 2. 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 Right knee postoperative arthrofibrosis 2. Right knee chronic subcutaneous hematoma Procedure: 1. Right knee diagnostic and operative arthroscopy with lysis of adhesions 2. Open evacuation of subcutaneous hematoma 3. Manipulation under anesthesia right knee Surgeon: Nick Bey DO Finishing Room Supervisor: SASHA Alcantara Anesthesiologist: Steve Suarez MD Estimated blood loss: 5 cc IV fluids: 800 cc crystalloid Urine output: None recorded Specimen: None Packing/drains: None Complications: None apparent Intraoperative findings: Subcutaneous chronic hematoma anterior to the peritenon of the patellar tendon measuring 1 x 1 x 1 cm. Extensive adhesion formation about the intercondylar notch and parapatellar tissue. Intact meniscal root repair. Preoperative indications: This is an otherwise healthy 53-year-old female who sustained a medial meniscal root tear. She underwent uncomplicated right knee medial meniscal root repair with myself on 03/26/2023. She was made nonweightbearing for 6 weeks postoperatively with restricted range of motion from 0 to 90 degrees. After advancing her weightbearing and range of motion, she had persistent block to flexion. Despite aggressive therapy flexion was limited to approximately 90 degrees. I recommended surgical intervention in the form of right knee diagnostic and operative arthroscopy with lysis of adhesions, manipulation under anesthesia. In the interim, patient did note a subcutaneous mass about her right patellar tendon. Exam was consistent with a ganglion cyst. We discussed benign neglect versus operative excision. She wished to proceed with operative excision given the need for repeat arthroscopy of her right knee. The risks, benefits, alternatives to procedure reviewed with patient at length and she agreed to proceed. Risk included but were not limited to bleeding infec tion, loss of life or limb, need for additional surgery, persistent pain or stiffness, DVT or PE, recurrence of mass, neurovascular injury, risk of anesthesia. Patient expressed understanding of these risks and wished to proceed with surgery. Description of procedure: Patient was identified in preoperative holding area by name, medical record number, and date of . The operative extremities marked. All questions answered to patient's satisfaction. An adductor canal block was administered by anesthesia staff prior to the procedure. At time of her procedure, patient brought the operative suite and positioned supine standard operating table. General anesthesia was induced and LMA was placed. All bony prominences were well-padded. A well-padded pneumatic tourniquet was applied to the right upper thigh. The right lower extremities placed in an arthroscopic leg henson. A well leg henson was placed in the patient's left thigh. The foot of the bed was dropped 90 degrees. We prepped and draped the right lower extremity in normal, sterile orthopedic fashion. Prior to placing the leg and the arthroscopic leg henson I examined the patient's range of motion under anesthesia. Range of motion was 0-90 degrees with firm endpoint at 90 degrees suggestive of adhesions/fibrous tissue. We performed timeout with all parties in attendance in agreement the side, site, operation be performed. No concerns voiced which proceed with surgery. 2 g Ancef was administered prior to tourniquet inflation by anesthesia staff. I first angulated the right lower extremity Esmarch bandage. Tourniquet was inflated to 250 mmHg which made up for approximately 20 minutes. Esmarch was removed. I turned my attention to the suspected ganglion cyst. A longitudinal incision was made sharply through skin and subcutaneous tissue proximally 1 cm in length overlying the mid to lateral portion of the patellar tendon. Full- thickness skin flaps were developed down to the level of the fascial tissue. I was unable to significantly mobilized the tissue and I elected to incise the suspected cyst. Coagulated blood was encountered suggestive of chronic hematoma. This was thoroughly irrigated and blood was debrided. I then closed the interval with kmammv-[id number] 4-0 nylon suture. I then commenced knee arthroscopy. Prior arthroscopic portals were marked and sharply incised with a 15 blade scalpel. Blunt tipped trocar was used to gain access into the knee joint. I was unable to access the patellofemoral joint likely due to adhesions. I commenced arthroscopy in the intercondylar notch. Excessive adhesions were encountered. Medial portal was dilated and a arthroscopic shaver introduced. Lysis of adhesions was commenced about the intercondylar notch. Adhesions were released anterior to both the medial and lateral meniscal horns. I then was able to enter the patellofemoral joint. Medial parapatellar bands were encountered and debrided with the radial resector. I used the arthroscopic cautery device to mitigate any postoperative bleeding. I then examined the rest of the knee. Lateral compartment was pristine. No loose bodies identified. Intercondylar notch was unremarkable. Medial compartment was entered. Chondromalacia was noted again. Medial meniscal repair was intact with probing at the posterior root. The knee was then thoroughly lavaged. Portal sites were closed with interrupted oymwls-pi-mhpwf 4-0 nylon suture. Bulky sterile compression dressing was applied. Tourniquet was deflated. Knee was brought out the arthroscopic leg henson and a proceeded with manipulation under anesthesia. The flexion was significantly improved without any manipulation to approximately 110 degrees. I then proceeded with gentle flexion force appreciating audible and palpable release of adhesions. I was able to achieve flexion to 140 degrees. Patient tolerated procedure well without complication. She was safely awoken the operative suite and extubated. She was transferred to her gurney and subsequent to PACU in stable condition. Postoperative plan: Discharged home same day. Pain control with Tylenol, meloxicam and oxycodone. Patient has physical therapy scheduled tomorrow. Aggressive physical therapy to be performed over the coming weeks. Weightbearing as tolerated. Follow-up in 2 weeks for range of motion assessment and suture removal. Aspirin 81 mg twice daily for DVT prophylaxis.
--- NOTE | 2023-06-18 10:41 | DCINST_ITS ---
Discharge Instructions Follow Up Care Test Results: Test results from this visit will be discussed in further detail at your follow- up appointment, if applicable. Discharge Plan Admission Attending Provider: Nick Bey Primary Care Provider: Jose Manuel Zamorano Discharge Orders/Prescriptions Prescriptions: New oxycodone 5 mg tablet 5 mg PO Q6H PRN (Reason: pain) 7 Days Qty: 28 0RF meloxicam 15 mg tablet 15 mg PO DAILY 30 Days Qty: 30 0RF Continued meloxicam 15 mg tablet 15 mg PO DAILY Patient Comments: TAKE 1 TABLET BY MOUTHCONCE DAILY WITH FOOD Referrals / Follow Up: Nick Bey DO [Med Staff - Active Staff] - Jose Manuel Zamorano MD [Primary Care Provider] - Disposition Disposition (needs filled in before D/C Order can be placed): Home, Self Care
[2023-06-18 10:45] VITALS: BP 125/90; BP 97/64; PULSE 70; RESP 16; TEMP 36.4; O2SAT 94
[2023-06-18] MEDS: Ketorolac 30 MG/ML Syringe IV (10:54)
[2023-06-18 11:00] VITALS: BP 100/70; BP 125/90; PULSE 60; RESP 16; O2SAT 100
[2023-06-18 11:10] VITALS: BP 118/70; BP 125/90; PULSE 60; RESP 16; O2SAT 100
[2023-06-18 11:16] VITALS: BP 119/71; BP 125/90; PULSE 56; RESP 16; TEMP 36.1; O2SAT 100
[2023-06-18 11:46] VITALS: BP 125/90
== END 2023-06-18 11:54 | disposition home or self-care (01) ==
LOC: SDC 08:32 → AC 08:33
PROVIDERS: PCP Family Medicine; Referring Provider Student in an Organized Health Care Education/Training Program; Visit Provider Student in an Organized Health Care Education/Training Program
PROC: (CPT 29870; principal; 2023-06-18 09:40)
DX: M24.661 Ankylosis, right knee (principal); M67.461 Ganglion, right knee; X58.XXXD Exposure to other specified factors, subsequent encounter; Z87.891 Personal history of nicotine dependence
CPT/HCPCS: 29884; 27570; 10140; 01400; 64447; 36415; 80048; 85025; J7120; J2405

== ENCOUNTER → 2023-12-31 | Outpatient (CLI) | payer OTHER, SELFPAY ==
--- NOTE | 2023-12-31 10:18 | BI_ITS ---
MAMMOGRAPHY - BILATERAL SCREENING REASON FOR EXAM: Female, 53 years old. Routine annual screening examination. PERTINENT HISTORY: Non-contributory. Remote left stereotactic breast biopsies. TECHNIQUE: Digital bilateral breast alissa (3D mammographic acquisition) in the CC and MLO projections. 2-D mediolateral oblique (MLO) and craniocaudad (CC) views of both breasts were obtained. CAD: Full Field Digital Mammography with Computer Added Detection was performed. COMPARISON: Comparison is made with prior examination dated March 07, 2021 and April 29, 2019. FINDINGS: Breast Composition: The breasts are heterogeneously dense, which may obscure small masses. There are no dominant masses or suspicious calcifications. 2 tissue clip markers are seen in the upper lateral and inferomedial aspect of the left breast. Stable small bilateral axillary lymph nodes. No other significant abnormalities are identified. There has been no significant change since the prior study. BI/SCRN MAMM (CAD)W/ALISSA BILAT IMPRESSION: Stable bilateral screening mammogram. Yearly follow-up mammogram recommended. (A) ASSESSMENT CATEGORY: BIRADS Category 2: Benign. A letter regarding these results will be sent to the patient by the facility within 30 days. Approximately 10% of breast cancers are not detected by mammography. A normal mammogram should not delay biopsy of a clinically suspicious abnormality. [id number] Electronically Signed: Reymundo Perez MD at 13:20 EDT ,
--- OUTSIDE RECORDS SUMMARY | 2023-12-31 17:16 | XMS RPT_ITS | CCD ---
Author Name Unknown Address [address] [place] [address] Organization [facility] Care Team Providers Care Acid Wash Operator Name Role Phone Jaun AHRRIS, Kim Alejo Primary Care Provider KMI BERNSTEIN Attending KIM Burciaga Primary Care Kim Burciaga MD Primary Care Provider Aaron Turner MD Unavailable Medications Current Medications Medication Drug Class(es) Dates Sig (Normalized) Sig (Original) tretinoin 0.25 mg/ml topical cream (11 sources) Retinoid Start: 06-17-2023 End: 06-16-2024 tretinoin (RETIN-A) 0.025 % topical cream Apply to affected area daily at bedtime. 45 g 11 06/17/2023 06/16/2024 Active Completed/Discontinued Medications Medication Drug Class(es) Dates Sig (Normalized) Sig (Original) ALPRAZolam 0.25 mg oral tablet (1 source) Benzodiazepine Start: 09-08-2011 End: 06-18-2022 take 1 tablet by mouth twice daily as needed ALPRAZolam (XANAX) 0.25 mg ORAL tablet Indications: Reactive depression , Insomnia Take 1 tablet by mouth twice daily as needed. 14 tablet 0 09/08/2011 06/18/2022 Discontinued Problems Active Problems Problem Classification Problem Date Documented Date Episodic/Chronic Diverticulosis and diverticulitis (2 sources) Diverticulitis of intestine; Translations: [Diverticulitis of intestine, part unspecified, without perforation or abscess without bleeding] Onset: 12-10-2022 06-17-2023 Chronic Mood disorders (1 source) Reactive depression (situational); Translations: [Major depressive disorder, single episode, unspecified] Chronic Other injuries and conditions due to external causes (1 source) Injury of right knee; Translations: [Unspecified injury of right lower leg, initial encounter] Episodic Residual codes; unclassified (1 source) Insomnia; Translations: [Insomnia, unspecified] Episodic Past or Other Problems Problem Classification Problem Date Documented Da te Episodic/Chronic Cardiac dysrhythmias (10 sources) Palpitations - rapid; Translations: [Palpitations] Onset: 06-18-2022 06-18-2022 Episodic E Codes: Natural/environment (10 sources) Tick bite; Translations: [Bitten or stung by nonvenomous insect and other nonvenomous arthropods, initial encounter] Onset: 06-18-2022 06-18-2022 Episodic Nonspecific chest pain (10 sources) Chest pain; Translations: [Chest pain, unspecified] Onset: 06-18-2022 06-18-2022 Episodic Other connective tissue disease (10 sources) Pain in left foot; Translations: [Pain in left foot] Onset: 04-30-2021 06-18-2022 Episodic Other screening for suspected conditions (not mental disorders or infectious disease) (20 sources) Patient encounter status; Translations: [Encounter for screening mammogram for malignant neoplasm of breast] Onset: 04-07-2019 Episodic Other upper respiratory infections (10 sources) Acute pharyngitis; Translations: [Acute pharyngitis, unspecified] Onset: 06-18-2022 06-18-2022 Episodic Results Test Name Value Interpretation Reference Range Facil ity Vital Signs Date Time Vital Sign Value Performing Clinician Faci lity 06-17-2023 14:23040 Body height 162.6 cm Kim Bernstein MD Work Phone: [facility] 06-17-2023 14:23-040 Body temperature 97.11 [degF] Kim Bernstein MD Work Phone: [facility] 06-17-2023 14:23040 Body weight 78.02 kg Kim Bernstein MD Work Phone: [facility] 06-17-2023 14:23-040 Diastolic blood pressure 88 mm[Hg] Kim Bernstein MD Work Phone: [facility] 06-17-2023 14:23-0400 Heart rate 73 /min Kim Bernstein MD Work Phone: [facility] 06-17-2023 14:23-0400 SaO2% (BldA) [Mass fraction] 96 % Kim Bernstein MD Work Phone: [facility] 06-17-2023 14:23-0400 Systolic blood pressure 122 mm[Hg] Kim Bernstein MD Work Phone: [facility] 06-18-2022 09:48-0400 Body height 162.6 cm Kim Bernstein MD Work Phone: [facility] 06-18-2022 09:48-0400 Body temperature 97.5 [degF] Kim Bernstein MD Work Phone: [facility] 06-18-2022 09:48-0400 Body weight 65.95 kg Kim Bernstein MD Work Phone: [facility] 06-18-2022 09:48-0400 Diastolic blood pressure 80 mm[Hg] Kmi Bernstein MD Work Phone: [facility] 06-18-2022 09:48-0400 Heart rate 82 /min Kim Bernstein MD Work Phone: [facility] 06-18-2022 09:48-0400 Respiratory rate 18 /min Kim Bernstein MD Work Phone: [facility] 06-18-2022 09:48-0400 SaO2% (BldA) [Mass fraction] 98 % Kim Bernstein MD Work Phone: [facility] 06-18-2022 09:48-0400 Systolic blood pressure 124 mm[Hg] Kim Bernstein MD Work Phone: [facility] Encounters Encounter Date Encounter Type Care Provider Facility Start: 06-24-2023 Patient encounter procedure [facility] Provider [facility] Department Start: 06-17-2023 End: 06-17-2023 ambulatory KIM BERNSTEIN Facility:[id number] Start: 06-17-2023 Encounter for genera l adult medical examination without abnormal findings KIM BERNSTEIN [facility] Start: 06-17-2023 End: 06-17-2023 Patient encounter status Kim Bernstein MD Work Phone: [facility] Work Phone: Start: 06-17-2023 End: 06-17-2023 Periodic preventive med est patient 40-64yrs Kim Bernstein MD Work Phone: [facility] Procedures Date Procedure Procedure Detail Performing Clinician Start: 06-18-2022 Adult depression scr eening assessment Kim Bernstein MD Work Phone: Start: 03-21-2021 Colonoscopy Kim shaw MD Work Phone: Start: 03-07-2021 Mammography Kim shaw MD Work Phone: Plan of Treatment Date Care Activity Detail Author Start: 03-21-2031 Colonoscopy COLONOSCOPY [facility] Start: 03-21-2031 COLORECTAL CANCER SCREENING COLORECTAL CANCER SCREENING [facility] Start: 06-19-2023 Influenza vaccination [facility] Start: 06-18-2023 Adult depression screening assessment DEPRESSION SCREENING [facility] Start: 06-17-2023 End: 08-17-2023 CBC W Auto Differential panel - Blood CBC + DIFF Lab Routine Screening for deficiency anemia Expected: 06/17/2023, Expires: 08/17/2023 [facility] Work Phone: Immunizations Immunization Date Immunization Notes Care Provider [facility] 09-03-2022 influenza, seasonal, injectable Kim Bernstein MD Work Phone: [facility] 07-16-2021 influenza, seasonal, injectable Kim Bernstein MD Work Phone: [facility] 07-16-2021 influenza, seasonal, injectable, preservative free Kim Bernstein MD Work Phone: [facility] 11-14-2020 COVID-19 vaccine, fu ll dose (MODERNA) Kim Bernstein MD Work Phone: [facility] 10-17-2020 COVID-19 vaccine, fu ll dose (MODERNA) Kim Bernstein MD Work Phone: [facility] 07-17-2020 influenza, seasonal, injectable Kim Bernstein MD Work Phone: [facility] 07-17-2020 influenza, seasonal, injectable, preservative free Kim Bernstein MD Work Phone: [facility] 08-22-2019 influenza, seasonal, injectable Kim Bernstein MD Work Phone: [facility] 08-22-2019 influenza, seasonal, injectable, preservative free Kim Bernstein MD Work Phone: [facility] 07-16-2018 influenza, seasonal, injectable Kim Bernstein MD Work Phone: [facility] 07-16-2018 influenza, seasonal, injectable, preservative free Kim Bernstein MD Work Phone: [facility] 07-15-2017 influenza, seasonal, injectable Kim Bernstein MD Work Phone: [facility] 07-15-2017 influenza, seasonal, injectable, preservative free Kim Bernstein MD Work Phone: [facility] 07-17-2016 influenza, seasonal, injectable Kim Bernstein MD Work Phone: [facility] 07-17-2016 influenza, seasonal, injectable, preservative free Kim Bernstein MD Work Phone: [facility] 09-03-2015 influenza, seasonal, injectable Kim Bernstein MD Work Phone: [facility] 09-03-2015 influenza, seasonal, injectable, preservative free Kim Bernstein MD Work Phone: [facility] 07-05-2014 influenza, seasonal, injectable Kim Bernstein MD Work Phone: [facility] 07-05-2014 influenza, seasonal, injectable, preservative free Kim Bernstein MD Work Phone: [facility] 08-18-2013 influenza, seasonal, injectable, preservative free Kim Bernsteni MD Work Phone: [facility] 06-19-2007 influenza virus vaccine, unspecified formulation Kim Bernstein MD Work Phone: [facility] Work Phone: 10-19-2001 tetanus and diphther ia toxoids, not adsorbed, for adult use Kim Bernstein MD Work Phone: [facility] Work Phone: Payers Date Payer Category Payer [facility] Health [facility] [employer] [id number] 2022-Present [phone] [address] [place] [address] PPO [id number] 2022 Private Health Insurance [id number] 2022 Unknown [id number] Social History Date Type Detail Facility Start: 06-18-2022 Tobacco smoking status MNIS Smokes t obacco daily [facility] End: 08-18-2022 History of tobacco use Cigarette Smoker [facility] Start: 06-18-2022 End: 06-17-2023 Cigarettes smoked current (pack per day) - Reported 1 [facility] Start: 06-18-2022 End: 06-17-2023 Tobacco use and exposure Smokeless tobacco non-user [facility] Start: 06-18-2022 End: 06-17-2023 Alcohol intake Current drinker of alcohol (finding) [facility] Start: 06-18-2022 History SDOH Alcohol Frequency 3 [facility] Start: 06-18-2022 History SDOH Alcohol Std Drinks 1 [facility] Start: 06-18-2022 History SDOH Social Connections Phone 5 [facility] Start: 06-18-2022 History SDOH Social Connections Jain 2 [facility] Start: 06-18-2022 History SDOH Physica l Activity DPW 0 [facility] Start: 1970 Sex Assigned At Not on file C [facility] Start: 06-08-2022 End: 08-31-2022 Exposure to SARS-CoV-2 (event) Not sure [facility] Start: 06-17-2023 Tobacco smoking status NHIS Ex-smoke r [facility] End: 08-18-2022 History of tobacco use Current smoker [facility] Start: 06-18-2022 End: 06-17-2023 Social connection and isolation panel [facility] Do you belong to any clubs or organizations such as buddhism groups, unions, fraternal or athletic groups, or school groups? No [facility] Are you now , , , , never or living with a partner? [facility] How often to you hav e a drink containing alcohol? 2-4 times a month [facility] How many standard dr inks containing alcohol do you have on a typical day? 5 or 6 [facility] How often do you hav e 6 or more drinks on 1 occasion? Less than monthly [facility] How hard is it for y ou to pay for the very basics like food, housing, medical care, and heating Not hard at all [facility] Do you feel stress - tense, restless, nervous, or anxious, or unable to sleep at night because your mind is troubled all the time - these days [OSQ] Very much [facility] (I/We) worried wheth er (my/our) food would run out before (I/we) got money to buy more. Never true [facility] Progress note 06-17-2023 Note Date & Type Note Facility 06-17-2023 Note HNO ID: [id number] Author: Kim Bernstein MD Service: ? Author Type: Physician Type: Progress Notes Filed: 06/17/2023 4:48 PM Note Text: This note was created using NetCom[employer]. Subjective Nida Gallegos is a 53 year old female. She presents today for annual wellness visit. Review of Systems Constitutional: Negative. HENT: Negative. Eyes: Negative. Respiratory: Negative. Cardiovascular: Negative. Gastrointestinal: Negative. Endocrine: Negative. Genitourinary: Negative. Musculoskeletal: Negative. Skin: Negative. Allergic/Immunologic: Negative. Neurological: Negative. Hematological: Negative. Psychiatric/Behavioral: Negative. Objective BP 122/88 (BP Site: Left Arm, BP Position: Sitting, BP Cuff Size: Regular Adult) Pulse 73 Temp 36.2 ?C (97.1 ?F) (Temporal) Ht 162.6 cm (5' 4 ) Wt 78 kg (172 lb) LMP 08/15/2011 SpO2 96% BMI 29.52 kg/m? Physical Exam Vitals reviewed. Constitutional: Appearance: Normal appearance. HENT: Head: Normocephalic and atraumatic. Nose: Nose normal. Eyes: Extraocular Movements: Extraocular movements intact. Pupils: Pupils are equal, round, and reactive to light. Cardiovascular: Rate and Rhythm: Normal rate and regular rhythm. Pulmonary: Effort: Pulmonary effort is normal. Breath sounds: Normal breath sounds. Abdominal: General: Bowel sounds are normal. Palpations: Abdomen is soft. Musculoskeletal: General: Normal range of motion. Cervical back: Normal range of motion and neck supple. Skin: General: Skin is warm and dry. Capillary Refill: Capillary refill takes less than 2 seconds. Neurological: General: No focal deficit present. Mental Status: She is alert and oriented to person, place, and time. Mental status is at baseline. Psychiatric: Mood and Affect: Mood normal. Behavior: Behavior normal. Assessment and Plan Encounter Diagnosis ICD-10-CM 1. Wellness examination Z00.00 COMP METABOLIC PANEL 2. Lipid screening Z13.220 LIPID PANEL BASIC 3. Screening for deficiency anemia Z13.0 CBC + DIFF 4. Encounter for screening mammogram for malignant neoplasm of breast Z12.31 SHREYAS SCREENING All open preventative health maintenance topics discussed with patient in detail. This includes risks and benefits regarding vaccines, cancer screening, healthy life style, and diet. Kim Bernstein MD [facility] History of Present illness Narrative 06-17-2023 Kim Bernstein MD - 06/17/2023 2:56 PM EDT Note Date & Type Note Facility 06-17-2023 History of Presen t illness Narrative This note was created using [employer]. Subjective Nida Gallegos is a 53 year old female. She presents today for annual wellness visit. Review of Systems Constitutional: Negative. HENT: Negative. Eyes: Negative. Respiratory: Negative. Cardiovascular: Negative. Gastrointestinal: Negative. Endocrine: Negative. Genitourinary: Negative. Musculoskeletal: Negative. Skin: Negative. Allergic/Immunologic: Negative. Neurological: Negative. Hematological: Negative. Psychiatric/Behavioral: Negative. Objective BP 122/88 (BP Site: Left Arm, BP Position: Sitting, BP Cuff Size: Regular Adult) Pulse 73 Temp 36.2 C (97.1 F) (Temporal) Ht 162.6 cm (5' 4 ) Wt 78 kg (172 lb) LMP 08/15/2011 SpO2 96% BMI 29.52 kg/m Physical Exam Vitals reviewed. Constitutional: Appearance: Normal appearance. HENT: Head: Normocephalic and atraumatic. Nose: Nose normal. Eyes: Extraocular Movements: Extraocular movements intact. Pupils: Pupils are equal, round, and reactive to light. Cardiovascular: Rate and Rhythm: Normal rate and regular rhythm. Pulmonary: Effort: Pulmonary effort is normal. Breath sounds: Normal breath sounds. Abdominal: General: Bowel sounds are normal. Palpations: Abdomen is soft. Musculoskeletal: General: Normal range of motion. Cervical back: Normal range of motion and neck supple. Skin: General: Skin is warm and dry. Capillary Refill: Capillary refill takes less than 2 seconds. Neurological: General: No focal deficit present. Mental Status: She is alert and oriented to person, place, and time. Mental status is at baseline. Psychiatric: Mood and Affect: Mood normal. Behavior: Behavior normal. Assessment and Plan Encounter Diagnosis ICD-10-CM 1. Wellness examination Z00.00 COMP METABOLIC PANEL 2. Lipid screening Z13.220 LIPID PANEL BASIC 3. Screening for deficiency anemia Z13.0 CBC + DIFF 4. Encounter for screening mammogram for malignant neoplasm of breast Z12.31 SHREYAS SCREENING All open preventative health maintenance topics discussed with patient in detail. This includes risks and benefits regarding vaccines, cancer screening, healthy life style, and diet. Kim Bernstein MD documented in this encounter [facility] Note 02-19-2023 Telephone Encounter - Audelia Munguia LPN - 02/19/2023 8:11 AM EDT Note Date & Type Note Facility 02-19-2023 Miscellaneous Notes Formattin g of this note might be different from the original. Referral faxed to [facility] #[phone] fax#[phone]. Audelia Munguia LPN February 19, 2023 8:11 AM documented in this encounter [facility] History of Present illness Narrative 06-18-2022 Radha Casey LPN - 06/18/2022 9:47 AM EDTRaymond Melo Bernstein MD - 06/18/2022 9:42 AM EDT Note Date & Type Note Facility 06-18-2022 History of Presen t illness Narrative Patient is in office today for yearly wellness. Is experiencing depression and stress. Patient stated was on Xanax in 2010 but has not taken it since then, no long prescribed. Radha Casey LPN June 18, 2022 9:48 AM This note was created using [employer]. Subjective Nida Gallegos is a 52 year old female. She presents for her annual wellness exam. Review of Systems Constitutional: Negative. HENT: Negative. Eyes: Negative. Respiratory: Negative. Cardiovascular: Negative. Gastrointestinal: Negative. Endocrine: Negative. Genitourinary: Negative. Musculoskeletal: Negative. Skin: Negative. Allergic/Immunologic: Negative. Neurological: Negative. Hematological: Negative. Psychiatric/Behavioral: Negative. Objective [facility] 08/15/2011 Physical Exam Vitals reviewed. Constitutional: Appearance: Normal appearance. HENT: Head: Normocephalic and atraumatic. Nose: Nose normal. Eyes: Extraocular Movements: Extraocular movements intact. Pupils: Pupils are equal, round, and reactive to light. Cardiovascular: Rate and Rhythm: Normal rate and regular rhythm. Pulmonary: Effort: Pulmonary effort is normal. Breath sounds: Normal breath sounds. Abdominal: General: Bowel sounds are normal. Palpations: Abdomen is soft. Musculoskeletal: General: Normal range of motion. Cervical back: Normal range of motion and neck supple. Skin: General: Skin is warm and dry. Capillary Refill: Capillary refill takes less than 2 seconds. Neurological: General: No focal deficit present. Mental Status: She is alert and oriented to person, place, and time. Mental status is at baseline. Psychiatric: Mood and Affect: Mood normal. Behavior: Behavior normal. Assessment and Plan Nida was seen today for wellness. Diagnoses and all orders for this visit: Wellness examination Reactive depression Insomnia Encounter for screening mammogram for malignant neoplasm of breast - SHREYAS SCREENING; Future Other orders - tretinoin (RETIN-A) 0.01 % gel; Apply as directed to affected area at bedtime. documented in this encounter [facility] Evaluation note Note Date & Type Note Facility documented in this encounter [facility] Evaluation note Note Date & Type Note Facility documented in this encounter [facility] Evaluation note Note Date & Type Note Facility documented in this encounter [facility] Reason for referral (narrative) Diagnostic Procedure Only (Routine) - Pending Review Note Date & Type Note Facility Referral ID Status Reason Start Date Expiration Date Visits Requested Visits Authorized [id number] Pending Review Auto-Generat ed Referral 06/18/2022 07/18/2023 1 1 [facility] Reason for referral (narrative) Diagnostic Procedure Only (Routine) - Pending Review Note Date & Type Note Facility Referral ID Status Reason Start Date Expiration Date Visits Requested Visits Authorized [id number] Pending Review Auto-Generat ed Referral 06/17/2023 07/16/2024 1 1 [facility] Summary Purpose Family History No Family History Records FoundNo Family History Records Found Advance Directives No Advanced Directives Records FoundNo Advanced Directives Records Found Reason for Referral Specialty Diagnoses / Procedures Referred By Rema rider Referred To Contact Orthopedics Diagnoses Injury of right knee, initial encounter Procedures CONSULT TO ORTHOPAEDICS OFFICE/OUTPATIENT [facility] 60-74 MINUTES Kim Bernstein MD [address] [place] [address] Referral ID Status Reason Start Date Expiration Date Visits Requested Visits Authorized [id number] Pending Review PCP Requested Referral 02/18/2023 02/18/2024 1 1 Additional Source Comments INFORMATION SOURCE (unrecogn ized section and content) DATE CREATED AUTHOR AUTHOR'S ORGANIZ ATION 06/18/2023 [facility] Source Comments (unrecognize d section and content) In the event this informatio n is protected by the Federal Confidentiality of Alcohol and Drug Abuse Patient Records regulations: The Federal rules restrict any use of the information to criminally investigate or prosecute any alcohol or drug abuse patient.[facility] the event this information is protected by the Federal Confidentiality of Alcohol and Drug Abuse Patient Records regulations: The Federal rules restrict any use of the information to criminally investigate or prosecute any alcohol or drug abuse patient.[facility] the event this information is protected by the Federal Confidentiality of Alcohol and Drug Abuse Patient Records regulations: The Federal rules restrict any use of the information to criminally investigate or prosecute any alcohol or drug abuse patient.[facility] the event this information is protected by the Federal Confidentiality of Alcohol and Drug Abuse Patient Records regulations: The Federal rules restrict any use of the information to criminally investigate or prosecute any alcohol or drug abuse patient.[facility] the event this information is protected by the Federal Confidentiality of Alcohol and Drug Abuse Patient Records regulations: The Federal rules restrict any use of the information to criminally investigate or prosecute any alcohol or drug abuse patient.[facility] the event this information is protected by the Federal Confidentiality of Alcohol and Drug Abuse Patient Records regulations: The Federal rules restrict any use of the information to criminally investigate or prosecute any alcohol or drug abuse patient.[facility] the event this information is protected by the Federal Confidentiality of Alcohol and Drug Abuse Patient Records regulations: The Federal rules restrict any use of the information to criminally investigate or prosecute any alcohol or drug abuse patient.[facility] the event this information is protected by the Federal Confidentiality of Alcohol and Drug Abuse Patient Records regulations: The Federal rules restrict any use of the information to criminally investigate or prosecute any alcohol or drug abuse patient.[facility] the event this information is protected by the Federal Confidentiality of Alcohol and Drug Abuse Patient Records regulations: The Federal rules restrict any use of the information to criminally investigate or prosecute any alcohol or drug abuse patient.[facility] the event this information is protected by the Federal Confidentiality of Alcohol and Drug Abuse Patient Records regulations: The Federal rules restrict any use of the information to criminally investigate or prosecute any alcohol or drug abuse patient.[facility] Reason for Visit (unrecogniz ed section and content) Specialty Diagnoses / Procedures Referred By Rema rider Referred To Contact Family Practice / FAMILY MEDICINE Diagnoses wellness Procedures OFFICE/OUTPATIENT ESTABLISHED HIGH MDM 40-54 MIN EST WELL VISIT Self, MD Bernstein, Kim Alejo MD [address] [place] [address] Referral ID Status Reason Start Date Expiration Date Visits Re quested Visits Authorized [id number] Closed 06/05/2022 10/18/2022 1 1 Reason Comments Referral Information Orthopedics Reason Comments Wellness Nida is here tod for a wellness exam. Asking to start Retin A cream instead of gel. She is scheduled for 2nd surgery tomorrow 06/18/[address] Dr Betsy Cameron Teams (unrecognized sec tion and content) Acid Wash Operator Relationship Specialty Start Date End Date Kim Bernstein MD [address] [place] [address] PCP - General Family Medicine 06/17/22 Acid Wash Operator Relationship Specialty Start Date End Date Kim Bernstein MD [address] [place] [address] PCP - General Family Medicine 06/17/22 Acid Wash Operator Relationship Specialty Start Date End Date Kim Bernstein MD [address] [place] [address] PCP - General Family Medicine 06/17/22 Acid Wash Operator Relationship Specialty Start Date End Date Kim Bernstein MD [address] [place] [address] PCP - General Family Medicine 06/17/22 Acid Wash Operator Relationship Specialty Start Date End Date Kim Bernstein MD [address] [place] [address] PCP - General Family Medicine 06/17/22 Acid Wash Operator Relationship Specialty Start Date End Date Kim Bernstein MD [address] [place] [address] PCP - General Family Medicine 06/17/22 Acid Wash Operator Relationship Specialty Start Date End Date Kim Bernstein MD [address] [place] [address] PCP - General Family Medicine 06/17/22 Aaron Turner MD [address] [place], [place] [address] General Surgery 06/18/23 FOR RECORDS PERTAINING TO PATIENTS WHO ARE OR HAVE BEEN ENROLLED IN A CHEMICAL DEPENDENCY/SUBSTANCEABUSE PROGRAM, SOME INFORMATION MAY BE OMITTED. This clinical summary was aggregated from multiple sources. Caution should be exercised in using it in the provision of clinical care. This summary normalizes information from multiple sources, and as a consequence, information in this document may materially change the coding, format and clinical context of patient data. In addition, data may be omitted in some cases. CLINICAL DECISIONS SHOULD BE BASED ON THE PRIMARY CLINICAL RECORDS. [facility]. provides no warranty or guarantee of the accuracy or completeness of information in this document.
== END | disposition home or self-care (01) ==
LOC: OPBI 10:16
PROVIDERS: PCP Family Medicine; Referring Provider Family Medicine; Visit Provider Family Medicine
DX: Z12.31 Encounter for screening mammogram for malignant neoplasm of breast (principal)
CPT/HCPCS: 77063; 77067

== ENCOUNTER → 2024-12-01 | Outpatient (CLI) | payer OTHER, SELFPAY ==
--- NOTE | 2024-12-01 10:11 | RAD_ITS ---
EXAM: XR Left Knee, 1 or 2 Views CLINICAL INDICATION: TECHNIQUE: Frontal and/or lateral views of the left knee. COMPARISON: No relevant prior studies available. FINDINGS: BONES/JOINTS: Unremarkable. No acute fracture. No dislocation. SOFT TISSUES: Unremarkable. RAD/Knee 1 or 2 Views IMPRESSION: No acute fracture. Reading Location: [facility]
--- NOTE | 2024-12-01 10:11 | RAD_ITS ---
PROCEDURE: Right knee radiographs REASON FOR EXAM: Pain, meniscal tear TECHNIQUE: Four views of the right knee COMPARISON: None. FINDINGS: See impression RAD/Knee 4 or More Views IMPRESSION: Negative for fracture or malalignment. Minimal medial and patellofemoral roseann rtment osteoarthritis. Small joint effusion. Reading Location: [facility]
== END | disposition home or self-care (01) ==
LOC: RAD.FUTURE 10:07 → RAD 10:10
PROVIDERS: PCP Family Medicine; Referring Provider Student in an Organized Health Care Education/Training Program; Visit Provider Student in an Organized Health Care Education/Training Program
DX: S83.231D Complex tear of medial meniscus, current injury, right knee, subsequent encounter (principal); X58.XXXD Exposure to other specified factors, subsequent encounter
CPT/HCPCS: 73560; 73564